=== PATIENT | male | born 1960 | race Caucasian/White ===

== ENCOUNTER 2021-05-25 10:42 | Outpatient (CLI) | payer MEDICAID, SELFPAY ==
[2021-05-25 12:57] LABS: Source Nasal/Nares
[2021-05-25 15:24] LABS: COVID-19 PCR Negative (Negative)
== END 2021-05-25 10:43 | disposition home or self-care (01) ==
PROVIDERS: PCP Family Medicine; Visit Provider Ophthalmology
DX: Z20.822 Contact with and (suspected) exposure to COVID-19 (principal); Z01.818 Encounter for other preprocedural examination
CPT/HCPCS: 87635

== ENCOUNTER 2021-06-14 12:54 | Outpatient (CLI) | payer MEDICAID, SELFPAY ==
--- NOTE | 2021-06-14 12:45 | RT.EKG_ITS ---
APPROVED REPORT Exam: Resting ECG Reason for Exam: CAD Patient Location: O HR:87 bpm ECG Measurements Heart Rate 87 AXIS MT 172 P 64 QRSd 115 QRS 56 QT 350 T 69 QTc 421 Conclusion Sinus rhythm...normal P axis, V-rate 50- 99 Ventricular premature complex...V complex w/ short R-R interval Probable left atrial enlargement...P >50mS, <-0.10mV V1 Incomplete right bundle branch block...QRSd >112, terminal axis(90,270) Anterior myocardial infarction age-indeterminate
== END 2021-06-14 12:55 | disposition home or self-care (01) ==
LOC: DI.CARD 12:54
PROVIDERS: PCP Family Medicine; Visit Provider Internal Medicine Cardiovascular Disease
DX: I25.10 Atherosclerotic heart disease of native coronary artery without angina pectoris (principal)
CPT/HCPCS: 93010

== ENCOUNTER 2021-09-14 04:13 | Outpatient (CLI) | payer MEDICAID, SELFPAY ==
[2021-09-14 12:59] LABS: Source Nasal/Nares
[2021-09-14 17:46] LABS: COVID-19 PCR Negative (Negative)
== END 2021-09-14 04:14 | disposition home or self-care (01) ==
LOC: LBO 04:13
PROVIDERS: PCP Internal Medicine; Visit Provider Ophthalmology
DX: Z20.822 Contact with and (suspected) exposure to COVID-19 (principal)
CPT/HCPCS: 87635

== ENCOUNTER 2021-09-17 07:32 | Day surgery (SDC) | payer MEDICAID, SELFPAY ==
[2021-09-17 07:36] VITALS: BP 145/87; PULSE 81; RESP 22; TEMP 36.5; O2SAT 95
[2021-09-17] MEDS: Tropicam./Phenyleph. (1/2.5%) 5 ML BTL OD ×3 (08:02→08:13)
--- NOTE | 2021-09-17 08:02 | ANES.PREOP_ITS ---
General Info Date of Service Date Performed: 09/17/21 Height: 5 ft 10 in Weight: 80.3 kg Body Mass Index (BMI): 25.4 Surgical Procedure: Operation Date: 09/17/21 09:40 Proposed Procedures Side Surgeon p Cataract Extraction with IOL Implant Right Ruben Benitez MD Meds Allergies and Home Medications Allergies Allergy/AdvReac Type Severity Reaction Status Date / Time No Known Allergies Allergy Verified 09/17/21 07:53 Home Medication Medication Instructions Recorded acetaminophen 650 mg PO Q6H PRN 05/23/21 albuterol sulfate [ProAir HFA] 2 puff INHALATION Q6H PRN 05/23/21 ascorbic acid (vitamin C) 1,000 mg PO DAILY 05/23/21 aspirin 81 mg PO DAILY 05/23/21 atorvastatin 40 mg PO DAILY 05/23/21 calcium carbonate-vitamin D3 2 tab PO DAILY 05/23/21 digoxin 0.25 mcg PO DAILY 05/23/21 ferrous sulfate 650 mg PO DAILY 05/23/21 finasteride 5 mg PO DAILY 05/23/21 furosemide [Lasix] 40 mg PO DAILY 05/23/21 gabapentin 600 mg PO TID 05/23/21 metoprolol succinate 100 mg PO DAILY 05/23/21 multivitamin with folic acid 1 tab PO DAILY 05/23/21 omeprazole 40 mg PO DAILY 05/23/21 rivaroxaban [Xarelto] 20 mg PO DAILY 05/23/21 tamsulosin 0.4 mg PO HS 05/23/21 Current Visit Medications: Current Medications Generic Name Dose Route Start Last Admin Trade Name Freq PRN Reason Stop Dose Admin Acetaminophen 1,000 mg 09/17/21 06:00 Acetaminophen 500 Mg Tab PO Q4H PRN PRN Miscellaneous Medication 0 ml 09/17/21 06:00 Prednisolone 1%, Moxifloxacin 0.5%, Nepafenac 0.1% 5ml Btl OD DIRECTED PENDING SALE TO [facility] Miscellaneous Medication 0 ml 09/17/21 06:00 Tropicam./Phenyleph. (1/2.5%) 5 Ml Btl OD DIRECTED PREETHI Tetracaine HCl 0 ml 09/17/21 06:00 Tetracaine 0.5% 4 Ml Btl OD DIRECTED PENDING SALE TO [facility] PFS Active Problems Active Problems: Problem Status Onset Code HTN (hypertension) I10 Atherosclerosis of coronary artery without angina pectoris I25.10 Critical lower limb ischemia I70.229 Nuclear sclerotic cataract of right eye H25.11 Cortical cataract of right eye H26.9 Posterior subcapsular age-related cataract, right eye H25.041 Medical History Medical History (Updated 09/17/21 @ 07:55 by Maria Isabel Castillo) Abnormal LFTs (liver function tests) Acute systolic CHF (congestive heart failure) Anemia Cardiomyopathy COPD (chronic obstructive pulmonary disease) Hiatal hernia with GERD without esophagitis History of alcoholism History of anemia HLD (hyperlipidemia) Hyperkalemia Hypo-osmolality and hyponatremia Intermittent claudication Lumbosacral radiculopathy NSTEMI (non-ST elevated myocardial infarction) Overweight Pain in right knee Pulmonary hyperinflation Stenosis of artery of left lower extremity Tobacco Smoking/Tobacco Use Status: Current every day Tobacco Type: cigarettes Smoking packs per day: 0.5 Smoking cigarettes per day: 15 Alcohol Alcohol Intake: current Alcohol intake frequency: a few times a month Substance Use Substance use type: does not use Vital Signs and Lab Results Vital Signs Most Recent Vital Signs in EMR: Most Recent Vital Signs Temp Pulse Resp BP Pulse Ox 36.5 C 81 22 145/87 H 95 09/17/21 07:36 09/17/21 07:36 09/17/21 07:36 09/17/21 07:36 09/17/21 07:36 Lab Results Blood Type / Crossmatch: No Data to Display Complete Blood Count: No Data to Display Complete Metabolic Panel: No Data to Display Liver Function Panel: No Data to Display Coagulation Panel: No Data to Display Cardiac Panel: No Data to Display Arterial Blood Gas: No Data to Display Venous Blood Gas: No Data to Display Pancreas Panel: No Data to Display Thyroid Panel: No Data to Display Infectious Disease: Coronavirus (COVID-19)(PCR) Negative (Negative) 09/14/21 08:35 09/14/21 Coronavirus 2019 Source Nasal/Nares 09/14/21 08:35 09/14/21 Blood Cultures: No Data to Display Toxicology Panel: No Data to Display Imaging and Studies Imaging and Studies Study information below may be from another EMR and interpreted by another provider. Please see original notes in EMR for more complete details. EKG Summary: 06/14/21: Conclusion Sinus rhythm...normal P axis, V-rate 50- 99 Ventricular premature complex...V complex w/ short R-R interval Probable left atrial enlargement...P >50mS, <-0.10mV V1 Incomplete right bundle branch block...QRSd >112, terminal axis(90,270) Anterior myocardial infarction age-indeterminate Anesthesia Assessment and Plan Anesthesia History Personal History: No History of Anesthesia Complications Family History: No Family History of Anesthesia Complications Exercise Tolerance Exercise Tolerance: Metabolic Equivalents>4 Cardiac & Pulmonary Exam Cardiac Exam: Normal S1/S2 Heart Sounds Pulmonary Exam: Clear Bilateral Breath Sounds Implantable Cardiac Device Does patient have a Pacemaker or an ICD?: No Airway Exam Known Difficult Airway: No Mallampati Class: 2 Mouth Opening: Normal (> 3cm) Thyromental Distance: Greater than 3 cm Facial Hair: Full Muñoz Neck Range of Motion: Full ROM Neck Circumference: Normal Teeth Condition: Removable Dentures/Plates Upper ASA Classification ASA Score: ASA 3 Emergency Case?: No NPO Status NPO Status: NPO Clears >2 hours, Solids >8 hours Anesthesia Plan Resuscitation Status: Full Code Anesthesia Technique: MAC Anesthesia Airway Planned: Natural Airway Monitors Used: Standard Monitors
[2021-09-17 08:05] VITALS: BMI 25.4
[2021-09-17] MEDS: Tetracaine 0.5% 4 ML BTL OD (09:03)
[2021-09-17] MEDS: Balanced Salt Soln.-PLUS 500 ML BAG (09:04)
[2021-09-17] MEDS: Duovisc Viscoelastic System EACH 1 EACH (09:05)
[2021-09-17] MEDS: Lidocaine 2% Jelly 6 ML SYR (09:07)
[2021-09-17] MEDS: Povidone-Iodine Ophth 30 ML BTL (09:09)
[2021-09-17] MEDS: Trypan Blue 0.06% 0.5 ML SYR (09:10)
[2021-09-17 09:21] VITALS: BP 135/87; PULSE 77; RESP 16; TEMP 36.4; O2SAT 92
--- NOTE | 2021-09-17 09:23 | W.PM.DSUDISC ---
Discharge Plan Disposition Patient Disposition: HOME Condition: Good Discharge Details Attending Provider: Ruben Benitez Primary Care Provider: Reji Andrews Home Meds and New Rx's Prescriptions: No Action furosemide [Lasix] 40 mg Tablet 40 mg PO DAILY RF: 0 atorvastatin 40 mg Tablet 40 mg PO DAILY RF: 0 acetaminophen 325 mg Tablet 650 mg PO Q6H PRNRF: 0 gabapentin 600 mg Tablet 600 mg PO TID RF: 0 metoprolol succinate 50 mg Tablet Extended Release 24 Hr 100 mg PO DAILY RF: 0 digoxin 250 mcg (0.25 mg) Tablet 0.25 mcg PO DAILY RF: 0 omeprazole 40 mg Capsule,Delayed Release(Dr/Ec) 40 mg PO DAILY RF: 0 tamsulosin 0.4 mg Capsule 0.4 mg PO HS RF: 0 ferrous sulfate 325 mg (65 mg iron) Tablet 650 mg PO DAILY RF: 0 aspirin 81 mg Tablet 81 mg PO DAILY RF: 0 albuterol sulfate [ProAir HFA] 90 mcg/actuation Hfa Aerosol Inhaler 2 puff INHALATION Q6H PRNRF: 0 finasteride 5 mg Tablet 5 mg PO DAILY RF: 0 calcium carbonate-vitamin D3 200 mg (500 mg) -400 unit Tablet 2 tab PO DAILY RF: 0 Xarelto 20 mg Tablet 20 mg PO DAILY RF: 0 multivitamin with folic acid 400 mcg Tablet 1 tab PO DAILY RF: 0 ascorbic acid (vitamin C) 500 mg Capsule 1,000 mg PO DAILY RF: 0 Discharge Instructions Stand Alone Forms: Post-op Topical Cataract, Hermelinda England ([facility]) Discharge Orders Discharge Orders: Discharge Order (Routine); Ordered 09/17/21 Ordered By: Ruben Benitez DS: Diagnosis Discharge Diagnosis (1) Nuclear sclerotic cataract of right eye: Status: Resolved (2) Cortical cataract of right eye: Status: Resolved (3) Posterior subcapsular age-related cataract, right eye: Status: Resolved
--- NOTE | 2021-09-17 09:24 | W.PM.OP ---
Date of service: 09/17/21 Time of Service: 09:24 Operative Note Operative Note DATE OF PROCEDURE: 09/17/21 PRE-OP DIAGNOSIS: Nuclear/cortical/posterior subcapsular cataract, right eye Poor red reflex, right eye secondary to dense cataract POST-OP DIAGNOSIS: same PROCEDURE: Cataract extraction using phacoemulsification with intraocular lens implantation, right eye, using capsular staining with Vision Blue SURGEON: Ruben Benitez ANESTHESIA TYPE: Local By Surgeon and MAC Refer to Anesthesia Record PATHOLOGY: none sent COMPLICATIONS: None Patient was transported to: same day Patient's condition: stable Implants: [employer]ie [employer] Howie / [employer] Tecnis [id number] Indications: Progressive visual loss due to cataract, right eye Procedure Description: CATARACT SURGERY OPERATIVE REPORT PREOPERATIVE DIAGNOSIS: 1. Nuclear/cortical/posterior subcapsular cataract, right eye 2. Poor red reflex secondary to #1 POSTOPERATIVE DIAGNOSIS: Same OPERATION: 1. Cataract extraction using phacoemulsification with posterior chamber intraocular lens implant, right eye. 2. Capsular staining with Vision Blue IOL: IOL Hydraulic Miner Blasting/Model: Howie & Howie / EMA Tecnis [id number] IOL Power: + 20.5 diopters IOL Serial Number: [id number] Optic Diameter: 6.0mm Haptic/Overall Diameter: 13.0mm PHACO INFO: Dima Prezmaurion Vision System with OZil and Active Fluidics Cumulative Dispersed Energy (CDE): 4.26 seconds SURGEON: Ruben Benitez MD, MERA ANESTHESIA: Monitored Anesthesia Care (MAC), with local sub-tenon's anesthetic infiltration COMPLICATIONS: None SPECIMENS: None INDICATIONS FOR PROCEDURE: The patient is a 61-year-old male with history of diminished visual acuity in his right eye secondary to the development of significant nuclear/cortical/posterior subcapsular cataract in the right eye. The option of cataract surgery was offered to the patient and he felt he was symptomatic enough that he wished to proceed. PROCEDURE: The correct surgical eye was identified and marked as the right eye and the pupil was dilated in the preoperative area using mydriatics and cycloplegics. The dilated pupil size was 5.5 mm. Oral sedation was administered in the form of an Imprimis MKO Melt (midazolam 3mg/ketamine 25mg/ondansetron 2mg). The patient was brought to the operating room where cardiopulmonary monitoring was instituted and surgical time-out was performed, confirming the correct operative eye and IOL power. Topical anesthesia was administered and ophthalmic povidone-iodine 5% was instilled into the conjunctival fornices. Lidocaine gel was applied to the cornea and the kelin-ocular area was prepped with Betadine 10% solution and draped in the usual sterile fashion for intraocular surgery, including an aperture drape. A Tegaderm transparent film dressing was cut in half and used to cover the lashes and lid margins. Care was taken to sequester the lashes and lid margins under the Tegaderm dressing. A lid speculum was placed between the lids of the operative eye and the Kayla-Yeimy operating microscope was maneuvered into position. Angelito scissors were then used to make a conjunctival buttonhole approximately 6mm posterior to the limbus in the inferonasal quadrant. Blunt dissection was carried out to expose bare sclera, and a blunt-tipped sub-tenon?s anesthesia cannula was introduced and passed posteriorly along the globe where non-preserved plain lidocaine was injected into posterior sub-Tenon?s space. A sideport knife was used to make a paracentesis port inferotemporally. Intraocular phenylephrine/lidocaine was injected into the anterior chamber. Air was injected into the anterior chamber, followed by Vision Blue, which was painted over the anterior capsule and then irrigated out with BSS. The anterior chamber was filled with viscoelastic. A 2.4mm keratome knife was used to create a half-thickness groove at the limbus and then to construct a three-plane near-clear corneal tunnel extending 2.0mm into clear cornea superiortemporally. A flap was raised on the anterior capsule and capsulorhexis forceps were used to complete a continuous curvilinear capsulorhexis of 5.0 mm. Balanced salt solution was then used to perform cortical cleaving hydrodissection and nuclear hydrodelineation until the lens could be freely rotated within the capsular bag. The lens nucleus was then disassembled and removed within the capsular bag and iris plane using phacoemulsification. Residual cortical material was removed using the I/A handpiece. The posterior capsule was carefully polished to remove as much residual lens epithelial cells as safely possible. The capsular bag was then inflated and the anterior chamber deepened with viscoelastic. The lens implant described above was inserted into the capsular bag using the EMA [place] Injector. A Kuglen hook was used to dial the IOL into position. Residual viscoelastic was then removed first from posterior to the IOL, then from the anterior chamber using the I/A handpiece. The lens implant was noted to center nicely within the capsular bag. The incisions were stromally hydrated, and the anterior chamber was reformed using BSS. Then 0.5cc of moxifloxacin 1.0mg/ml were injected into the capsular bag and anterior chamber. The incisions were checked with a Weck spear and found to be secure. Several drops of ophthalmic povidone-iodine 5% were then applied to the eye followed by two drops of Imprimis combination prednisolone/moxifloxacin/nepafenac solution. The drapes were removed and a clear plastic protective eye shield was placed over the eye. The patient was then returned to [facility] Day Surgery in stable condition.
--- NOTE | 2021-09-17 09:35 | W.ANESPOSTOP ---
Postoperative Evaluation Date, Time and Location Date Performed: 09/17/21 Time Performed: 09:25 Patient Location: Day Surgery Unit Vital Signs Most Recent Imported Vital Signs: Most Recent Vital Signs Temp Pulse Resp BP Pulse Ox 36.4 C L 77 16 135/87 92 09/17/21 09:21 09/17/21 09:21 09/17/21 09:21 09/17/21 09:21 09/17/21 09:21 Pain Score Most Recent Pain Score: Most Recent Pain Score Pain Level 0 09/17/21 09:21 Assessment Mental Status: Awake (Alert & Oriented to Patient Baseline) Airway and Respiratory Function: Patent airway with normal (patient baseline) respiratory exam Cardiovascular Function: Hemodynamically Stable Hydration Status: Adequately Hydrated Nausea & Vomiting: No Nausea or Vomiting Pain: Pt. Denies Any Pain Peripheral Nerve Block: Patient did not receive a nerve block
[2021-09-17 09:50] VITALS: BP 117/80; PULSE 77; RESP 20; TEMP 36.5; O2SAT 91
== END 2021-09-17 10:10 | disposition home or self-care (01) ==
PROVIDERS: PCP Internal Medicine; Visit Provider Ophthalmology
PROC: (CPT 66984; principal; 2021-09-17 09:30)
DX: H25.041 Posterior subcapsular polar age-related cataract, right eye (principal); J44.9 Chronic obstructive pulmonary disease, unspecified; E78.5 Hyperlipidemia, unspecified; D64.9 Anemia, unspecified; F17.210 Nicotine dependence, cigarettes, uncomplicated; H57.09 Other anomalies of pupillary function
CPT/HCPCS: 66984; V2632

== ENCOUNTER 2021-09-28 02:00 | Outpatient (CLI) | payer MEDICAID, SELFPAY ==
[2021-09-28 10:38] LABS: Source Nasal/Nares
[2021-09-28 13:45] LABS: COVID-19 PCR Negative (Negative)
== END 2021-09-28 02:01 | disposition home or self-care (01) ==
LOC: LBO 02:00
PROVIDERS: PCP Internal Medicine; Visit Provider Ophthalmology
DX: Z20.822 Contact with and (suspected) exposure to COVID-19 (principal); Z01.818 Encounter for other preprocedural examination
CPT/HCPCS: 87635

== ENCOUNTER 2021-10-01 08:55 | Day surgery (SDC) | payer MEDICAID, SELFPAY ==
[2021-10-01 09:19] VITALS: BP 152/87; PULSE 86; RESP 16; TEMP 36.5; O2SAT 90
--- NOTE | 2021-10-01 09:46 | NUR.NOTE ---
MCKNIGHT. Arrived in wheel chair. O2 sats 86% on room air. Occasional congested cough. Flakita diminished lung sounds. States he took his albuterol MDI at 0600 this AM. Denies having spacer. Spacer obtained and utelized with instructions for 2 puffs MDI from home. Criselda from anesthesia made aware and in to see patient. Nursing Note:
--- NOTE | 2021-10-01 09:57 | NUR.NOTE ---
Nebulizer given. LS remain extremely diminished with new faint expiratory wheezin left lung. O2 sats 90% on room air. Nursing Note:
--- NOTE | 2021-10-01 10:42 | ANES_ITS ---
Date of service: 10/01/21 Time of Service: 10:43 Anesthesia Note Report Anesthesia Note: [facility] nursing staff alerted anesthesia that patient presented today for second cataract and was reporting productive cough over the last week. Patient with a history of COPD, yet significantly decreased O2 saturation from his previous visit. Duoneb was ordered and administered. No improvement in symptoms--tripoding in chair, with O2 sat on room air 84%. Plan to postpone pa tient today and will need to be evaluated in ER or have plan in place to be seen by his PCP today prior to discharge. Patient appropriately disappointed and verbalizes understanding for postponement.
--- NOTE | 2021-10-01 11:01 | NUR.NOTE ---
O2 sats trended back to 84-86% on room air. Assuming tripod positioning. Remains alert and oriented. Congested cough productive for thick yellow phlegm. Sister notified. Transferred to emergency department. Report given to Rafy Lima RN. Nursing Note:
--- NOTE | 2021-10-01 11:02 | NUR.NOTE ---
1050: Spoke with pt's primary care office ([facility]), as well as pt's two sisters (as requested by pt) Emy Christina and Portia Darrius to let them know pt's status; they were all onboard with plan to send pt to ED r/t pt's inability to maintain O2 sats despite intervention by Carli Webster CRNA and poor O2 exchange, per TOOL CRIB CLERK. When appropriate, pt transported to ED via wheelchair with [facility] staff.
== END 2021-10-01 08:56 | disposition home or self-care (01) ==
LOC: SUR 08:55
PROVIDERS: PCP Internal Medicine; Visit Provider Ophthalmology
DX: H26.8 Other specified cataract (principal); Z53.09 Procedure and treatment not carried out because of other contraindication; R05.1 Acute cough; J44.9 Chronic obstructive pulmonary disease, unspecified

== ENCOUNTER 2021-10-01 10:51 | Observation (INO) | payer MEDICAID, SELFPAY ==
[2021-10-01] VITALS (34 sets, daily range): BP systolic 99–154; BP diastolic 62–116; PULSE 51–139; RESP 4–25; TEMP 36.4–36.8; O2SAT 87–98
--- NOTE | 2021-10-01 11:00 | RT.EKG_ITS ---
APPROVED REPORT Exam: Resting ECG Reason for Exam: sob Patient Location: E HR:77 bpm ECG Measurements Heart Rate 77 AXIS NC 174 P 58 QRSd 111 QRS 78 QT 399 T 61 QTc 449 Conclusion Sinus rhythm...normal P axis, V-rate 60- 99 Multiform ventricular premature complexes...short R-R, variable morphology Anterolateral infarct, old...Q>40mS, abnrm ST-T, V3-V6,I,aVL no STEMI, non-diagnostic EKG I have reviewed and interpreted ECG and agree with software generated interpretation.
--- NOTE | 2021-10-01 11:00 | DI.RAD_ITS ---
Exam(s) XR PORTABLE CHEST AP EXAM: XR PORTABLE CHEST AP CLINICAL HISTORY: Shortness of breath. TECHNIQUE: 2D digital imaging was performed. COMPARISON: No exams were available for comparison FINDINGS: Heart size is upper normal. The mediastinum is not widened. There are mild increased interstitial markings in the lung steiner including a few subtle Jg B freedom es in the lateral right lung base. There are no pleural effusions. No pneumothorax. IMPRESSION: Subtle increased bilateral markings. No pleural effusions DATA REPOSITORY: RADIATION DOSE DELIVERED: All CT scans at this facility use at least one of these dose optimization techniques: automated exposure control; mA and/or kV adjustment per patient size (includes targeted e xams where dose is matched to clinical indication); or iterative reconstruction.
[2021-10-01 11:32] LABS: Abs Immature Grans 0.04 10^3/uL (0.0-0.06); Absolute Basophil Count 0.03 10^3/uL (0.0-0.2); Absolute Eosinophil Count 0.12 10^3/uL (0.0-0.7); Absolute Lymphocyte Count 1.48 10^3/uL (1.2-3.4); Absolute Monocyte Count 1.09 10^3/uL (0.1-0.8); Absolute Neutrophil Count 7.44 10^3/uL (1.2-6.7); Basophils % 0.3; Eosinophils % 1.2; HCT 42.5 % (40.0-50.0); HGB 14.3 g/dL (13.5-17.5); Immature Grans % 0.4; Lymphocytes % 14.5; MCHC 33.6 % (32.0-36.0); MCV 92.2 fL (80-95); MPV 9.1 fL (8.0-11.0); Monocytes % 10.7; Neutrophils % 72.9; Nucleated RBC 0 %; Platelet Count 301 10^3/uL (130-400); RBC 4.61 10^6/uL (4.36-5.78); RDW 13.1 % (11.8-14.1); RDW-SD 44.5 fL
[2021-10-01 11:37] LABS: HCO3 (Venous) 44 mmol/L (23-28); O2 Sat (Venous) 38 %; TCO2 (Venous) 40 mmol/L (24-29); pH (Venous) 7.45 (7.31-7.41); pO2 (Venous) 20 mmHg
[2021-10-01] MEDS: methylPREDNISolone SUCC 125 MG VIAL IVP (11:38)
[2021-10-01] MEDS: Albuterol/Ipratropium 3 ML UPD VIAL UPD ×2 (11:38→18:04)
[2021-10-01 11:40] LABS: BE (Venous) > 15 mmol/L (-2-3); pCO2 (Venous) 64 mmHg (41-51)
[2021-10-01 11:55] LABS: ALT 20 U/L (16-63); AST 15 U/L (15-37); Albumin 3.6 g/dL (3.4-5.0); Alkaline Phosphatase 105 U/L (46-116); Anion Gap 0.9 mmol/L (3-11); BUN 7 mg/dL (7-18); Bilirubin, Total 0.5 mg/dL (0.2-1.0); CO2 39.1 mmol/L (21.0-32.0); CREATININE 0.7 mg/dL (0.70-1.30); Calcium 9.1 mg/dL (8.5-10.1); Chloride 84 mmol/L (98-107); Glucose 118 mg/dL (74-106); Magnesium 1.7 mg/dL (1.8-2.4); NT-proBNP 875 pg/mL (<300); Potassium 3.3 mmol/L (3.5-5.1); Total Protein 7.7 g/dL (6.4-8.2); Troponin I < 50 ng/L (<or=60)
[2021-10-01 11:59] LABS: Sodium 124 mmol/L (136-145)
--- NOTE | 2021-10-01 12:10 | ED.GENADUL_ITS ---
Discharge Plan Disposition Patient Disposition: [facility] INPATIENT Condition: Stable Discharge Details Clinical Impression: Hypoxia, COPD exacerbation Admit Date/Time: 10/01/21 15:10 Admit Provider: Laura Frost Attending Provider: Laura Frost Primary Care Provider: Reji Andrews ED Provider: Mendez Manuel Discharge Data Discharge Date/Time-TO BE ENTERED AT DEPARTURE: 10/01/21 16:28 Medical Decision Making Patient presenting to the emergency department for chief complaint of shortness of breath. Patient reports that this is been worsening over the past 2 weeks. Patient denies any associated chest pain abdominal pain or other symptoms. He does report that this since April he has had a chronic productive cough. Patient recently had cataract procedure. Physical exam shows mild to moderate work of breathing with slightly barrel chest. Very diminished lung sounds in the bases with mild wheezing heard upper lobes with still small amount of air movement. Normal cardiac exam, patient is alert and awake and oriented and able speak in full sentences. Plan to check labs including troponin, BNP, and VBG. Will give DuoNeb and Solu-Medrol pending results. Patient also kept on 2 L nasal cannula of O2 given desaturation on room air even at rest going down to 85 while sitting on bed. EKG shows PVCs without significant ST change. Please see attending physician interpretation for full EKG review. Initial troponin is negative, BNP slightly elevated at 875, patient does have hyponatremia, hypokalemia, low chloride and low anion gap. Magnesium is also 1.7. Given electrolyte abnormalities and PVCs plan to check digoxin level. CBC shows no leukocytosis and no anemia. VBG shows slight alkalosis with elevated bicarb along with elevated CO2. Will consider placing patient on BiPAP but after discussion of patient's condition with respiratory therapist requesting ABG prior to starting BiPAP. I feel this is a reasonable request. Patient still pending D-dimer at this time. Reviewed D-dimer which is slightly elevated at 508. With age-adjusted adjusted level patient would not meet criteria for CTA but nurse did report that patient did significantly desat just simply standing up from the bed while on 2 L of oxygen. Given this and no obvious cause of patient hypoxia beyond his COPD which at baseline is only treated with a as needed inhaler I do feel that further advanced imaging would be beneficial. Chest x-ray was reviewed prior to CTA and showed no pleural effusion and subtle increase of bilateral markings without consolidation or infiltrate noted. Pending CTA patient did need an increase of nasal cannula to 4L due to having some desaturation while resting. Radiologist CT results were obtained and did show a slight subpleural infiltrate without pleural effusion. Otherwise no evidence of PE, infarction, or effusion. Given that patient is hypoxic and continues to need nasal cannula I do feel that patient needs admission with fashion of COPD exacerbation being primary cause but honestly difficult to ascertain given otherwise benign work-up. Spoke with Dr. Frost who agreed to admit patient and complete evaluation for hypoxia. HPI General Mode of arrival: ambulatory . Date/Time Provider Initiated Documentation: 10/01/21 10:52 . Limitations to Documentation: no limitations . Information obtained by: patient and RN/MD . History of Present Illness 61 year old M presents to the emergency department with the chief complaint of Shortness of breath, described as moderate, Quality is described as other (denies pain or discomfort), Patient started experiencing this month(s) and it has been constant. improves with No relieving factors improve symptom(s), Other factors that worsen symptoms (change in weather) . Patient notes denies chest pain, fever/chills and headaches. Patient did receive the following treatments prior to arrival, other (albuterol) Related Data Home Medications Medication Instructions Recorded Confirmed acetaminophen 325 mg tablet 650 mg PO Q6H PRN 05/23/21 10/01/21 albuterol sulfate 90 mcg/actuation 2 puff INHALATION Q6H PRN 05/23/21 10/01/21 aerosol inhaler (ProAir HFA) ascorbic acid (vitamin C) 500 mg 1,000 mg PO DAILY 05/23/21 10/01/21 capsule aspirin 81 mg tablet 81 mg PO DAILY 05/23/21 10/01/21 atorvastatin 40 mg tablet 40 mg PO DAILY 05/23/21 10/01/21 calcium carbonate 200 mg calcium 2 tab PO DAILY 05/23/21 10/01/21 (500 mg)-vitamin D3 400 unit tablet digoxin 250 mcg (0.25 mg) tablet 250 mcg PO DAILY 05/23/21 10/01/21 ferrous sulfate 325 mg (65 mg 650 mg PO DAILY 05/23/21 10/01/21 iron) tablet finasteride 5 mg tablet 5 mg PO DAILY 05/23/21 10/01/21 furosemide 40 mg tablet (Lasix) 40 mg PO DAILY 05/23/21 10/01/21 metoprolol succinate 50 mg 100 mg PO DAILY 05/23/21 10/01/21 tablet,extended release 24 hr multivitamin with folic acid 400 1 tab PO DAILY 05/23/21 10/01/21 mcg tablet omeprazole 40 mg capsule,delayed 40 mg PO DAILY 05/23/21 10/01/21 release rivaroxaban 20 mg tablet (Xarelto) 20 mg PO DAILY 05/23/21 10/01/21 tamsulosin 0.4 mg capsule 0.4 mg PO HS 05/23/21 10/01/21 gabapentin 600 mg tablet 600 mg PO DAILY 10/01/21 10/01/21 omega-3 fatty acids 1 cap PO BID 10/01/21 10/01/21 budesonide-formoterol HFA 80 2 puff INHALATION BID #1 g 10/03/21 mcg-4.5 mcg/actuation aerosol inhaler (Symbicort) cefpodoxime 200 mg tablet 400 mg PO Q12H #10 tab 10/03/21 doxycycline hyclate 100 mg tablet 100 mg PO BID #5 tab 10/03/21 prednisone 20 mg tablet 40 mg PO DAILY #6 tab 10/03/21 Previous Rx's Medication Instructions Recorded budesonide-formoterol HFA 80 2 puff INHALATION BID #1 g 10/03/21 mcg-4.5 mcg/actuation aerosol inhaler (Symbicort) cefpodoxime 200 mg tablet 400 mg PO Q12H #10 tab 10/03/21 doxycycline hyclate 100 mg tablet 100 mg PO BID #5 tab 10/03/21 prednisone 20 mg tablet 40 mg PO DAILY #6 tab 10/03/21 Allergies Allergy/AdvReac Type Severity Reaction Status Date / Time No Known Allergies Allergy Verified 10/01/21 13:02 General Stated Complaint: SOB SINDY: 2 Review of Systems Constitutional Constitutional: Denies chills and Denies fever(s) Cardiovascular Cardiovascular: Denies chest pain, Denies chest pain with activity, Denies syncope, Denies irregular heart rhythm, Denies leg edema, Denies palpitations, Reports dyspnea and Reports dyspnea on exertion Respiratory Respiratory: Reports as per HPI, Reports cough, Denies hemoptysis, Reports excessive phlegm production, Denies pain with cough, Reports dyspnea and Reports dyspnea on exertion Gastrointestinal Gastrointestinal: Denies abdominal pain, Denies heartburn, Denies diarrhea, Denies nausea and Denies vomiting Integumentary/Breasts Skin/Breast: Denies rash Neurologic Neurologic: Denies syncope Psychiatric Psychiatric: Denies anxiety Endocrine Endocrine: Denies cold intolerance, Denies heat intolerance and Denies palpitations PFSH All Active Problems (Updated 10/04/21 @ 00:04 by [employer]) Hypoxia (Acute) COPD exacerbation (Acute) HTN (hypertension) (Chronic) Atherosclerosis of coronary artery without angina pectoris (Acute) Critical lower limb ischemia (Acute) Medical History (Updated 10/04/21 @ 00:04 by [employer]) Abnormal LFTs (liver function tests) Acute respiratory failure with hypoxia and hypercapnia Acute systolic CHF (congestive heart failure) Anemia CAD (coronary artery disease) Cardiomyopathy COPD (chronic obstructive pulmonary disease) Hiatal hernia with GERD without esophagitis History of alcoholism History of anemia HLD (hyperlipidemia) Hyperkalemia Hypo-osmolality and hyponatremia Intermittent claudication Lumbosacral radiculopathy NSTEMI (non-ST elevated myocardial infarction) Overweight PAD (peripheral artery disease) Pain in right knee Pulmonary hyperinflation Stenosis of artery of left lower extremity Surgical History Hx of vascular surgery LLE. Family History (Updated 10/01/21 @ 18:03 by Laura Frost MD) Father Hypertension Mother Cancer ovarian cancer Social History (Updated 10/01/21 @ 18:04 by Laura Frost MD) Smoking/Tobacco Use Status: Current every day Tobacco Type: cigarettes Smoking packs per day: 0.75 Smoking cigarettes per day: 15.0 Years smoked: 45 Smoking pack-years: 33.75 Quit status: considering quitting Counseling given: provider counseling and support medications Smoking risk assessment performed?: Yes Alcohol Intake: current Alcohol Intake frequency: a few times a month Substance use type: does not use Do you feel safe at home: Yes Do you feel safe in your relationship?: Yes Exam Const General: cooperative, acute distress mild, moderate and respiratory and not diaphoretic Nutritional Appearance: average body habitus Orientation: alert, awake and oriented x3 Limitations: mental status not altered Neck Neck: normal visual inspection, full ROM, trachea midline, supple and no anterior neck swelling Thyroid: thyroid normal Carotids: normal carotid upstroke and no bruits Chest Chest: abnormal inspection of the chest barrel chest Resp Effort & Inspection: able to speak in complete sentences, labored and tachypneic Auscultation: diminished lung sounds bilaterally in the lower lung steiner and wheezes expiratory wheezes and left upper Cardio Jugular venous pressure: no JVD Palpation: normal PMI Rate: regular rate Rhythm: regular rhythm Heart Sounds: S1 normal, S2 normal, no click, no gallops, no murmurs and no rubs Bruits: no abdominal aortic bruits and no carotid bruits Pulses: radial pulses present bilaterally 2+ GI Inspection: normal to inspection Palpation: soft, no aortic enlargement, no pulsatile masses and nontender Auscultation: normal bowel sounds Skin General skin exam: no rashes or lesions noted Neuro General: patient alert, patient awake, patient oriented x3, tone normal and moves all extremities Course Vital Signs Vital signs: Vital Signs Temperature 36.4 C L 10/01/21 11:02 Pulse 79 10/01/21 11:02 Respiratory Rate 16 10/01/21 11:02 Blood Pressure 134/64 10/01/21 11:02 Pulse Oximetry 87 L 10/01/21 11:02 Temperature 36.4 C L 10/01/21 11:02 Pulse 80 10/01/21 11:38 Pulse 82 10/01/21 11:30 Respiratory Rate 17 10/01/21 11:42 Respiratory Effort 10/01/21 11:42 Respiratory Depth Normal 10/01/21 11:42 Respiratory Pattern Tachypnea 10/01/21 11:42 Blood Pressure 140/86 10/01/21 11:30 Blood Pressure Mean 99 10/01/21 11:30 Blood Pressure Position Supine 10/01/21 11:02 Pulse Oximetry 98 10/01/21 11:38 Oxygen Delivery Method Aerosol Mask 10/01/21 11:38 Oxygen Flow Rate 7 10/01/21 11:38 Lab/Test Results Lab/Test Results: Laboratory Tests Range/Units 10/01/21 10/01/21 10/01/21 11:15 11:15 11:35 WBC (4.4-10.8) 10^3/uL 10.20 RBC (4.36-5.78) 10^6/uL 4.61 Hgb (13.5-17.5) g/dL 14.3 Hct (40.0-50.0) % 42.5 MCV (80-95) fL 92.2 MCH (27.0-33.0) pg 31.0 MCHC (32.0-36.0) % 33.6 RDW (11.8-14.1) % 13.1 Plt Count (130-400) 10^3/uL 301 MPV (8.0-11.0) fL 9.1 Immature Gran % 0.4 Neutrophils % 72.9 Lymphocytes % 14.5 Monocytes % 10.7 Eosinophils % 1.2 Basophils % 0.3 Nucleated RBC % % 0 Absolute Neutrophils (1.2-6.7) 10^3/uL 7.44 H Absolute Lymphocytes (1.2-3.4) 10^3/uL 1.48 Absolute Monocytes (0.1-0.8) 10^3/uL 1.09 H Absolute Eosinophils (0.0-0.7) 10^3/uL 0.12 Absolute Basophils (0.0-0.2) 10^3/uL 0.03 VBG pH (7.31-7.41) 7.45 H VBG pCO2 (41-51) mmHg 64 H* VBG pO2 mmHg 20 VBG HCO3 (23-28) mmol/L 44 H VBG Total CO2 (24-29) mmol/L 40 H VBG O2 Saturation % 38 VBG Base Excess (-2-3) mmol/L > 15 H Sodium (136-145) mmol/L 124 L Potassium (3.5-5.1) mmol/L 3.3 L Chloride (98-107) mmol/L 84 L Carbon Dioxide (21.0-32.0) mmol/L 39.1 H Anion Gap (3-11) mmol/L 0.9 L BUN (7-18) mg/dL 7 Creatinine (0.70-1.30) mg/dL 0.7 Estimated GFR/1.73 m2 (mL/min/1.73m2) >= 60.00 Glucose (74-106) mg/dL 118 H Calcium (8.5-10.1) mg/dL 9.1 Magnesium (1.8-2.4) mg/dL 1.7 L Total Bilirubin (0.2-1.0) mg/dL 0.5 AST (15-37) U/L 15 ALT (16-63) U/L 20 Alkaline Phosphatase (46-116) U/L 105 Troponin I (<or=60) ng/L < 50 NT-Pro-B Natriuret Pep (<300) pg/mL 875 H Total Protein (6.4-8.2) g/dL 7.7 Albumin (3.4-5.0) g/dL 3.6 PAWSS Have you Been Recently Intoxicated or Drunk Within the Last 30 days?: No Result: 0
[2021-10-01 12:13] LABS: COVID-19 PCR Negative (Negative)
[2021-10-01 12:14] LABS: Source Nasal/Nares
[2021-10-01 12:24] LABS: D-Dimer 508 ng/mlFEU (<500)
[2021-10-01] MEDS: Albuterol/Ipratropium 3 ML UPD VIAL 6 ML UPD (12:27)
[2021-10-01 12:37] LABS: HCO3 42 mmol/L (22-26); pH 7.44 (7.35-7.45); pO2 77 mmHg (80-105); sO2 96 % (95-98); tCO2 38 mmol/L (23-27)
[2021-10-01 12:40] LABS: BE > 15 mmol/L (-2-3); FIO2L 2 L; Site Left Radial; pCO2 62 mmHg (35-45)
--- NOTE | 2021-10-01 13:30 | DI.CT_ITS ---
Exam(s) CT CHEST PE CTA EXAM: CT CHEST PE CTA CLINICAL HISTORY: SOB. TECHNIQUE: Imaging Protocol: CT angiography of the chest was performed using pulmonary embolus mickey col. Multi planar reconstructions were performed. CONTRAST MATERIAL: Intravenous: Omnipaque 350 Contrast volume: 100 cc COMPARISON: CR XR PORTABLE CHEST AP from 10/01/2021 FINDINGS: CHEST: PULMONARY ARTERIES: There are no intraluminal filling defects to suggest acute pulmonary emboli. LUNGS: There is an area of subpleural infiltrate in the left lower lobe (series 4/image 35), this silas suring 1.5 x 1.7 cm.. There are no pleural effusions. MEDIASTINUM: There are enlarged lymph nodes in the right hilum. No enlarged lymph nodes in left hilu m. No enlarged lymph nodes in the anterior mediastinal fat. Visualized thyroid unremarkable. CARDIAC: Heart size is upper normal. There is no pericardial effusion.Caliber of the thoracic aorta is within normal limits. There is no significant shift of the interventricular septum. PARTIALLY VISUALIZED UPPERMOST ABDOMEN: No obvious findings OSSEOUS: No significant osseous lesions.. IMPRESSION: 1. No evidence of acute pulmonary emboli. No evidence of pulmonary infarction.No pleural effusions. 2. However, there is a small area of subpleural infiltrate in the left lower, as described above. No associated pleural effusion 3. There are enlarged lymph nodes in the opposite-right hilum. RADIATION DOSE DELIVERED: 274.06mGy.cm Total DLP DATA REPOSITORY: All CT scans at this facility are submitted to the National Radiology Data Registry (NRDR) Dose Index Registry (DIR) with the [employer] ([employer]). RADIATION OPTIMIZATION: All CT scans at this facility use at least one of these dose optimization te chniques: automated exposure control; mA and/or kV adjustment per patient size (includes targeted exa ms where dose is matched to clinical indication); or iterative reconstruction.
[2021-10-01 14:36] LABS: Digoxin 1.15 ng/mL (0.90-2.00)
--- NOTE | 2021-10-01 15:13 | W.PM.HP.N ---
Date of service: 10/01/21 Time of Service: 15:13 Assessment and Plan Assessment and plan (1) Acute respiratory failure with hypoxia and hypercapnia: Status: Acute Assessment and plan: Already improving. Multifactorial. Due to acute exacerbation of COPD/acute bronchitis as well as mild exacerbation of CHF. Continue steroids; add antibiotics, continue scheduled and prn nebs. Wean O2 as tolerated. Diurese. (2) COPD (chronic obstructive pulmonary disease): Assessment and plan: As above. Add doxycycline/cefpodoxime as the patient describes sputum color change and there is evidence of an subpleural infiltrate on CT. Negative procalcitonin is encouraging, but there was a sputum color change reported. Continue scheduled and prn nebs. Consider addition of symbicort. (3) Cardiomyopathy: Assessment and plan: causing chronic systolic CHF, presumably ischemic in nature. Obtain PCP records. Obtain echo. Diurese. Monitor I/O's and daily weights. Qualifiers: Cardiomyopathy type: ischemic Qualified Code(s): I25.5 - Ischemic cardiomyopathy (4) Hypokalemia: Status: Acute Assessment and plan: Replete; replete; recheck in am (5) Hypomagnesemia: Status: Acute Assessment and plan: Replete; recheck in am (6) DVT prophylaxis: Status: Acute Assessment and plan: On therapeutic xarelto (7) Discharge planning issues: Status: Acute Assessment and plan: Full code History of Present Illness History of Present Illness Chief Complaint: shortness of breath, cough; sent to ER by anesthesia Narrative: Mr Dunaway is a 61 year old male with PMHx of CAD, ICMO/CHFrEF (systolic, last EF unknown), PAD on xarelto, HTN, hyperlipidemia, tobacco abuse who was sent to [facility] ED today by anesthesia, having presented for L cataract surgery scheduled for today due to low O2 sats (80s on RA). He c/o chronic cough since April, which became productive of yellow sputum and was accompanied by worsening shortness of breath x 2 weeks, since his R cataract surgery. He also noted nasal congestion since then. Denies fever, sore throat, chest pain, GI sx, exposure to COVID-19. He is fully vaccinated and boosted against Covid-19. He was found to be hypoxic in the ED with O2 sats of 87% on RA. Due to his WOB, he was considered for BiPAP therapy, but because his ABG revealed respiratory alkalosis, this was deferred. Workup in the ED involved a negative COVID-19 PCR (also had a negative test 3 days ago), a negative CXR, a subpleural infiltrate in LLL and no PE on CTA. He is requiring 2L of O2 at rest but is still desaturating to mid-80s on ambulation on 2L. Hospitalist admission was requested for a presumed COPD exacerbation. The patient states that he watches his salt intake, denies edema, orthopnea/PND. He states that he did not come to the hospital for shortness of breath today; his low O2 sats were found incidentally. Review of Systems All systems reviewed & are unremarkable except as noted in HPI and below PFSH All Active Problems (Updated 10/01/21 @ 18:09 by Laura Frost MD) Hypoxia (Acute) COPD exacerbation (Acute) Discharge planning issues (Acute) DVT prophylaxis (Acute) Hypomagnesemia (Acute) Hypokalemia (Acute) Acute respiratory failure with hypoxia and hypercapnia (Acute) HTN (hypertension) (Chronic) Atherosclerosis of coronary artery without angina pectoris (Acute) Critical lower limb ischemia (Acute) Medical History (Updated 10/01/21 @ 18:09 by Laura Frost MD) Abnormal LFTs (liver function tests) Acute systolic CHF (congestive heart failure) Anemia CAD (coronary artery disease) Cardiomyopathy COPD (chronic obstructive pulmonary disease) Hiatal hernia with GERD without esophagitis History of alcoholism History of anemia HLD (hyperlipidemia) Hyperkalemia Hypo-osmolality and hyponatremia Intermittent claudication Lumbosacral radiculopathy NSTEMI (non-ST elevated myocardial infarction) Overweight PAD (peripheral artery disease) Pain in right knee Pulmonary hyperinflation Stenosis of artery of left lower extremity Surgical History Hx of vascular surgery LLE. Family History (Updated 10/01/21 @ 18:03 by Laura Frost MD) Father Hypertension Mother Cancer ovarian cancer Social History (Updated 10/01/21 @ 18:04 by Laura Frost MD) Smoking/Tobacco Use Status: Current every day Tobacco Type: cigarettes Smoking packs per day: 0.75 Smoking cigarettes per day: 15.0 Years smoked: 45 Smoking pack-years: 33.75 Quit status: considering quitting Counseling given: provider counseling and support medications Smoking risk assessment performed?: Yes Alcohol Intake: current Alcohol Intake frequency: a few times a month Substance use type: does not use Do you feel safe at home: Yes Do you feel safe in your relationship?: Yes Meds Allergies and Home Medications Allergies Allergy/AdvReac Type Severity Reaction Status Date / Time No Known Allergies Allergy Verified 10/01/21 13:02 Home Medications Medication Instructions Recorded Confirmed Type acetaminophen 325 mg tablet 650 mg PO Q6H PRN 05/23/21 10/01/21 History albuterol sulfate 90 mcg/actuation 2 puff INHALATION Q6H PRN 05/23/21 10/01/21 History aerosol inhaler (ProAir HFA) ascorbic acid (vitamin C) 500 mg 1,000 mg PO DAILY 05/23/21 10/01/21 History capsule aspirin 81 mg tablet 81 mg PO DAILY 05/23/21 10/01/21 History atorvastatin 40 mg tablet 40 mg PO DAILY 05/23/21 10/01/21 History calcium carbonate 200 mg calcium 2 tab PO DAILY 05/23/21 10/01/21 History (500 mg)-vitamin D3 400 unit tablet digoxin 250 mcg (0.25 mg) tablet 250 mcg PO DAILY 05/23/21 10/01/21 History ferrous sulfate 325 mg (65 mg 650 mg PO DAILY 05/23/21 10/01/21 History iron) tablet finasteride 5 mg tablet 5 mg PO DAILY 05/23/21 10/01/21 History furosemide 40 mg tablet (Lasix) 40 mg PO DAILY 05/23/21 10/01/21 History metoprolol succinate 50 mg 100 mg PO DAILY 05/23/21 10/01/21 History tablet,extended release 24 hr multivitamin with folic acid 400 1 tab PO DAILY 05/23/21 10/01/21 History mcg tablet omeprazole 40 mg capsule,delayed 40 mg PO DAILY 05/23/21 10/01/21 History release rivaroxaban 20 mg tablet (Xarelto) 20 mg PO DAILY 05/23/21 10/01/21 History tamsulosin 0.4 mg capsule 0.4 mg PO HS 05/23/21 10/01/21 History gabapentin 600 mg tablet 600 mg PO DAILY 10/01/21 10/01/21 History omega-3 fatty acids 1 cap PO BID 10/01/21 10/01/21 History Exam Narrative Exam Narrative: General: Pleasant middle-aged male who does not appear to be in acute distress, no dyspnea/tachypnea while providing hx, completing full sentences, A&Ox3 on 2L of O2 by NC Neurological: A&Ox3, no focal deficits Psychiatric: Appropriate speech pattern/content Skin: Chronic venous stasis dermatitis changes B; no rashes/bruises HEENT: Atraumatic, normocephalic, EOMI, dry MM, clear oropharynx, no submandibular or cervical lymphadenopathy, no goiter or JVD Cardiovascular: RRR, no m/r/g Lungs: Expiratory wheezing and rales B Gastrointestinal: soft, nontender, nondistended Genitourinary: deferred Extremities: +1 edema BLE's, I was unable to palpate pedal pulses; BLE cool; no clubbing/cyanosis. Chronic venous stasis dermatitis. Results Imaging Imaging Studies: CXR: Subtle increased bilateral markings.? No pleural effusions CTA chest ; 1. No evidence of acute pulmonary emboli.? No evidence of pulmonary infarction.No pleural effusions. 2. However, there is a small area of subpleural infiltrate in the left lower, as described above.? No associated pleural effusion 3. There are enlarged lymph nodes in the opposite-right hilum. EKG: HR 78, NSR, RBBB (old) Labs Result diagrams: 10/01/21 11:15 10/01/21 11:15 Labs: Laboratory Results - last 24 hr 10/01/21 10/01/21 10/01/21 11:15 11:15 11:15 WBC 10.20 RBC 4.61 Hgb 14.3 Hct 42.5 MCV 92.2 MCH 31.0 MCHC 33.6 RDW 13.1 Plt Count 301 MPV 9.1 Immature Gran % 0.4 Neutrophils % 72.9 Lymphocytes % 14.5 Monocytes % 10.7 Eosinophils % 1.2 Basophils % 0.3 Nucleated RBC % 0 Absolute Neutrophils 7.44 H Absolute Lymphocytes 1.48 Absolute Monocytes 1.09 H Absolute Eosinophils 0.12 Absolute Basophils 0.03 D-Dimer 508 H ABG Sample Site ABG pH ABG pCO2 ABG pO2 ABG HCO3 ABG Total CO2 ABG O2 Saturation ABG Base Excess VBG pH VBG pCO2 VBG pO2 VBG HCO3 VBG Total CO2 VBG O2 Saturation VBG Base Excess Oxygen Liter Flow Sodium 124 L Potassium 3.3 L Chloride 84 L Carbon Dioxide 39.1 H Anion Gap 0.9 L BUN 7 Creatinine 0.7 Estimated GFR/1.73 m2 >= 60.00 Glucose 118 H Calcium 9.1 Magnesium 1.7 L Total Bilirubin 0.5 AST 15 ALT 20 Alkaline Phosphatase 105 Troponin I < 50 NT-Pro-B Natriuret Pep 875 H Total Protein 7.7 Albumin 3.6 Digoxin COVID-19 Source SARS-CoV-2 (PCR) 10/01/21 10/01/21 10/01/21 11:15 11:15 11:35 WBC RBC Hgb Hct MCV MCH MCHC RDW Plt Count MPV Immature Gran % Neutrophils % Lymphocytes % Monocytes % Eosinophils % Basophils % Nucleated RBC % Absolute Neutrophils Absolute Lymphocytes Absolute Monocytes Absolute Eosinophils Absolute Basophils D-Dimer ABG Sample Site ABG pH ABG pCO2 ABG pO2 ABG HCO3 ABG Total CO2 ABG O2 Saturation ABG Base Excess VBG pH 7.45 H VBG pCO2 64 H* VBG pO2 20 VBG HCO3 44 H VBG Total CO2 40 H VBG O2 Saturation 38 VBG Base Excess > 15 H Oxygen Liter Flow Sodium Potassium Chloride Carbon Dioxide Anion Gap BUN Creatinine Estimated GFR/1.73 m2 Glucose Calcium Magnesium Total Bilirubin AST ALT Alkaline Phosphatase Troponin I NT-Pro-B Natriuret Pep Total Protein Albumin Digoxin 1.15 COVID-19 Source Nasal/Nares SARS-CoV-2 (PCR) Negative 10/01/21 12:32 WBC RBC Hgb Hct MCV MCH MCHC RDW Plt Count MPV Immature Gran % Neutrophils % Lymphocytes % Monocytes % Eosinophils % Basophils % Nucleated RBC % Absolute Neutrophils Absolute Lymphocytes Absolute Monocytes Absolute Eosinophils Absolute Basophils D-Dimer ABG Sample Site Left Radial ABG pH 7.44 ABG pCO2 62 H* ABG pO2 77 L ABG HCO3 42 H ABG Total CO2 38 H ABG O2 Saturation 96 ABG Base Excess > 15 H VBG pH VBG pCO2 VBG pO2 VBG HCO3 VBG Total CO2 VBG O2 Saturation VBG Base Excess Oxygen Liter Flow 2 Sodium Potassium Chloride Carbon Dioxide Anion Gap BUN Creatinine Estimated GFR/1.73 m2 Glucose Calcium Magnesium Total Bilirubin AST ALT Alkaline Phosphatase Troponin I NT-Pro-B Natriuret Pep Total Protein Albumin Digoxin COVID-19 Source SARS-CoV-2 (PCR) Last Vital Signs Temp 36.4 C L 10/01/21 11:02 Pulse 86 10/01/21 14:46 Resp 20 10/01/21 14:46 BP 99/64 L 10/01/21 14:46 Pulse Ox 92 10/01/21 14:46 PAWSS Have you Been Recently Intoxicated or Drunk Within the Last 30 days?: No Result: 0
[2021-10-01] MEDS: MAGNESIUM SULFATE 2 GM/50 ML BAG IVPB (15:30)
[2021-10-01] MEDS: Furosemide 40 MG/4 ML VIAL IVP (15:30)
[2021-10-01] MEDS: Potassium Chloride 20 MEQ TABCR 40 MEQ PO ×2 (15:31→20:13)
[2021-10-01 15:55] LABS: Troponin I < 50 ng/L (<or=60)
[2021-10-01 16:26] LABS: Lab Add On Test DONE
[2021-10-01 17:05] LABS: Procalcitonin < 0.1 ng/mL
[2021-10-01] MEDS: Normal Saline Flush 10 ML SYR IVP (18:03)
[2021-10-01] MEDS: Cefpodoxime 200 MG TAB 400 MG PO (18:28)
[2021-10-01] MEDS: Doxycycline Hyclate 100 MG CAP PO (18:28)
[2021-10-01] MEDS: Omega-3 Fatty Acids 1000 MG CAP PO (20:13)
[2021-10-01] MEDS: Rivaroxaban 10 MG TABLET 20 MG PO (21:14)
[2021-10-01] MEDS: Tamsulosin 0.4 MG CAPCR PO (21:14)
[2021-10-02] VITALS (14 sets, daily range): BP systolic 110–144; BP diastolic 67–82; PULSE 74–98; RESP 16–20; TEMP 36.2–37.1; O2SAT 4–98
[2021-10-02] MEDS: Albuterol/Ipratropium 3 ML UPD VIAL UPD ×5 (00:45→23:07)
[2021-10-02] MEDS: Doxycycline Hyclate 100 MG CAP PO ×2 (06:26→17:11)
[2021-10-02] MEDS: Cefpodoxime 200 MG TAB 400 MG PO ×2 (06:26→17:11)
[2021-10-02 07:03] LABS: Abs Immature Grans 0.03 10^3/uL (0.0-0.06); Absolute Basophil Count 0.01 10^3/uL (0.0-0.2); Absolute Eosinophil Count 0.02 10^3/uL (0.0-0.7); Absolute Lymphocyte Count 0.82 10^3/uL (1.2-3.4); Absolute Neutrophil Count 7.21 10^3/uL (1.2-6.7); Basophils % 0.1; Eosinophils % 0.2; Immature Grans % 0.3; Lymphocytes % 9.2; MCHC 32.5 % (32.0-36.0); MCV 95.5 fL (80-95); MPV 9.4 fL (8.0-11.0); Neutrophils % 81.2; Nucleated RBC 0 %; Platelet Count 317 10^3/uL (130-400); RBC 4.19 10^6/uL (4.36-5.78); RDW 13.2 % (11.8-14.1); RDW-SD 46.2 fL; WBC 8.89 10^3/uL (4.4-10.8)
[2021-10-02 07:23] LABS: Anion Gap 4.3 mmol/L (3-11); BUN 13 mg/dL (7-18); CO2 34.7 mmol/L (21.0-32.0); CREATININE 0.6 mg/dL (0.70-1.30); Chloride 91 mmol/L (98-107); Glucose 137 mg/dL (74-106); Magnesium 2.1 mg/dL (1.8-2.4); Potassium 4.3 mmol/L (3.5-5.1); Sodium 130 mmol/L (136-145)
[2021-10-02] MEDS: Furosemide 40 MG/4 ML VIAL IVP (08:58)
[2021-10-02] MEDS: Normal Saline Flush 10 ML SYR IVP ×2 (08:59→09:01)
[2021-10-02] MEDS: Metoprolol CR 50 MG TABCR 100 MG PO (09:02)
[2021-10-02] MEDS: Multivitamin w/Minerals TAB 1 TAB PO (09:03)
[2021-10-02] MEDS: Digoxin 0.25 MG TAB PO (09:03)
[2021-10-02] MEDS: Potassium Chloride 20 MEQ TABCR 40 MEQ PO (09:03)
[2021-10-02] MEDS: predniSONE 20 MG TAB 40 MG PO (09:03)
[2021-10-02] MEDS: Finasteride 5 MG TAB PO (09:03)
[2021-10-02] MEDS: Calcium 600mg/Vit D 200U TAB 2 TAB PO (09:04)
[2021-10-02] MEDS: Ferrous Sulfate 325 MG TAB 650 MG PO (09:04)
[2021-10-02] MEDS: Atorvastatin 40 MG TAB PO (09:05)
[2021-10-02] MEDS: Ascorbic Acid 500 MG TAB 1000 MG PO (09:05)
[2021-10-02] MEDS: Omega-3 Fatty Acids 1000 MG CAP PO ×2 (09:06→19:22)
[2021-10-02] MEDS: Omeprazole 20 MG CAPCR 40 MG PO (09:06)
[2021-10-02] MEDS: Aspirin E.C. 81 MG TABEC PO (09:06)
[2021-10-02] MEDS: Albuterol 2.5 MG/3 ML INH SOLN VIAL UPD (09:34)
--- NOTE | 2021-10-02 09:35 | NUR.NOTE ---
Nursing Note: During medication administration this morning (around 0910), the patient started having an acute cough attack. The patient ended up spitting up some of his pills. The coughing went on for about 20 minutes, the patient finally agreed to allow the nurse to give him his PRN Albuterol nebulizer. At this time the coughing started to calm down and the patients SpO2 saturation went up from 88% to 93%.
--- NOTE | 2021-10-02 10:57 | PDOC.CMIN ---
- If Service Date Differs Date of service: 10/02/21 Time of Service: 10:57 Care Management Initial Assess REASON FOR HOSPITALIZATION:: Acute Hypoxia PAST MEDICAL HISTORY/PAST SURGICAL HISTORY:: All Active Problems. Hypoxia (Acute). COPD exacerbation (Acute). Discharge planning issues (Acute). DVT prophylaxis (Acute). Hypomagnesemia (Acute). Hypokalemia (Acute). Acute respiratory failure with hypoxia and hypercapnia (Acute). HTN (hypertension) (Chronic). Atherosclerosis of coronary artery without angina pectoris (Acute). Critical lower limb ischemia (Acute). Medical History. Abnormal LFTs (liver function tests). Acute systolic CHF (congestive heart failure). Anemia. CAD (coronary artery disease). Cardiomyopathy. COPD (chronic obstructive pulmonary disease). Hiatal hernia with GERD without esophagitis. History of alcoholism. History of anemia. HLD (hyperlipidemia). Hyperkalemia. Hypo-osmolality and hyponatremia. Intermittent claudication. Lumbosacral radiculopathy. NSTEMI (non-ST elevated myocardial infarction). Overweight. PAD (peripheral artery disease). Pain in right knee. Pulmonary hyperinflation. Stenosis of artery of left lower extremity. Surgical History. Hx of vascular surgery. LLE. PREVIOUS FUNCTIONAL STATUS/SOCIAL/FAMILY SUPPORTS:: Bhanu lives in [place], alone. His sister, Emy lives nearby and is supportive. Bhanu does not work, and has been on disability for about a year. He is independent at baseline, although he has support from weekly to help with housekeeping. CURRENT FUNCTIONAL STATUS:: Bhanu was sitting up in his chair when CM met with him. He reported that he was feeling good, although he stated that he felt fairly well when he arrived as well. He was on supplemental O2, and reported that he had met with RT, and he would likely be discharged with home O2. Per report, he was having an echo today. CM will continue to follow. ADVANCE DIRECTIVES:: Agent appointment on file, Bhanu Dunaway II listed as agent. Has patient been provided with info about the portal/API?: Yes Did the patient sign up for the portal?: No CODE STATUS:: Full Code INSURANCE COVERAGE / FINANCIAL ISSUES:: [employer] CURRENT HOME/COMMUNITY SERVICES/EQUIPMENT:: weekly for housekeeping support. No equipment currently. PRIMARY CARE PHYSICIAN:: Reji Andrews POTENTIAL DISCHARGE NEEDS:: Evaluations for further needs, follow up appointments. PATIENT/FAMILY EDUCATION NEEDS:: Review discharge instructions regarding activity levels and medications, discussion of self care needs including ask me three. ANTICIPATED BARRIERS TO DISCHARGE:: None identified. TRANSPORTATION:: Via private vehicle by his sister. PLAN:: Bhanu will return home when medically cleared. His sister will drive him home via private vehicle when ready. He will follow up with his PCP and discharge plan of care. CM will continue to follow.
--- NOTE | 2021-10-02 11:04 | PHA.REVIEW ---
Pharmacy Admission Review - Admission Clinical Review (Last Updated 10/01/21 @ 18:03 by Laura Frost MD) Hypoxia (Acute) COPD exacerbation (Acute) Discharge planning issues (Acute) DVT prophylaxis (Acute) Hypomagnesemia (Acute) Hypokalemia (Acute) Acute respiratory failure with hypoxia and hypercapnia (Acute) No Known Allergies Allergy (Verified 10/01/21 13:02) Resuscitation Status Full Code Height 5 ft 8 in Weight 78.1 kg - Renal Dosing Renal Dosing: BUN 13 mg/dL (7-18) D 10/02/21 06:35 Creatinine 0.6 mg/dL (0.70-1.30) L 10/02/21 06:35 Medications needing adjustments: Reviewed (Crcl ~95 mL/min current meds okay) - Anticoagulation Anticoagulation: Hgb 13.0 g/dL (13.5-17.5) L 10/02/21 06:35 Hct 40.0 % (40.0-50.0) 10/02/21 06:35 Plt Count 317 10^3/uL (130-400) 10/02/21 06:35 Creatinine 0.6 mg/dL (0.70-1.30) L 10/02/21 06:35 DVT Prophylaxis: N/A Therapeutic Anticoagulation: Reviewed Medications: Rivaroxaban - Opiate Usage Evaluate Pain Scale/Pains Meds: N/A - Relevant Labs Sodium 130 mmol/L (136-145) L 10/02/21 06:35 Potassium 4.3 mmol/L (3.5-5.1) D 10/02/21 06:35 Chloride 91 mmol/L (98-107) L 10/02/21 06:35 Magnesium 2.1 mg/dL (1.8-2.4) 10/02/21 06:35 Electrolytes, C-Reactive P, ESR: Reviewed (K+ improved since admission, still has scheduled K+ replacement ordered.) - DM Control DM Control: Glucose 137 mg/dL (74-106) H 10/02/21 06:35 Insulin Dosing: N/A (BG mildly elevated, pt is on a steroid, no DM noted in medical history and no A1c on file.) - Heart Failure/NM Heart Failure/NM: Troponin I < 50 ng/L (<or=60) 10/01/21 15:20 NT-Pro-B Natriuret Pep 875 pg/mL (<300) H 10/01/21 11:15 EF%, SADIA's, B-Blockers, Diuretics: Reviewed - BP Control BP Control: Blood Pressure 124/69 Blood Pressure 110/67 Blood Pressure 110/67 If elevated: Reviewed (BP has been up and down a bit since admission but has been within normal limits so far today.) - Qtc Review If Elevated: N/A (QTc 449 on admission) - IV to PO Switch IV Medications: Reviewed - Home Meds Home Med List reviewed: Intervened (Pharmacist on yesterday evening updated the gabapentin dosing on the home med list as the dosing changed per the external med history.) - Current meds Current Medication Order Review: Intervened (discontinued duplicate med orders) - Comments Comments/Follow Ups: Watch BP, K+, labs, for culture results and for med changes. Antibiotic Activity - Pharmacy Antibiotic Review Pharmacy Antibiotic Activity: C/S review (Sputum culture pending, per gram stain rare gram positive laya. PO doxycycline and cefpodoxime continue (day 2 starts this evening).)
--- NOTE | 2021-10-02 11:24 | DI.US_ITS ---
APPROVED REPORT EXAM: Comprehensive 2D, Doppler, and color-flow Echocardiogram Patient Location: In-Patient Student Life Dean: Rose Fischer RDCS (AE) Indications: CHF Other Information Study Quality: Adequate Conclusion Normal left ventricular wall thickness and chamber size. Estimated ejection fraction is 55%. There is akinesis of the anteroapical, anteroseptal, inferoapical and distal anterolateral de anda Normal right ventricular size and systolic function Both atria are normal in size There is aortic valve sclerosis without stenosis or regurgitation Mildly thickened mitral leaflets with mild regurgitation Trace tricuspid regurgitation. Estimated right ventricular systolic pressure is 34 mmHg Wall motion Left Ventricle The left ventricle is normal size. Left ventricular systolic function is borderline. There is normal left ventricular wall thickness. Regional wall motion abnormalities are noted. There is no ventricula r septal defect visualized. LVEF is 55%. Right Ventricle The right ventricle is normal size. The right ventricular systolic function is normal. The RVSP is 33 .9 mmHg. Atria The left atrium size is normal. The right atrium size is normal. Atrial septal aneurysm is present. Aortic Valve The Aortic valve is sclerotic. Number of aortic valve leaflets could not be assessed. There is no aor tic valvular stenosis. No aortic regurgitation is present. Mitral Valve Mitral valve leaflets are mildly thickened. No evidence of mitral valve stenosis. Mild mitral regurgi tation. Tricuspid Valve The tricuspid valve is normal in structure. There is no tricuspid valve stenosis. Trace tricuspid reg urgitation. Pulmonic Valve Pulmonic valve is not well visualized. There is no pulmonic valvular stenosis. There is no pulmonic v alvular regurgitation. Great Vessels The aortic root is normal in size. Ascending aorta is not well visualized. Aortic arch is not well vi sualized. The IVC collapses <50% with inspiration. Pericardium There is no pericardial effusion. 2D Dimensions IVSD d PLAX 1.22 cm M: 0.6-1.2 LV Vol A2C d MOD 128.7 mL LVPW d PLAX 1.21 cm M: 0.6 - 1.2 LV Vol A4C d MOD 110.3 mL LVID d PLAX 4.46 cm M: 4.2 - 5.8 LA vol/ BSA A2C s A-L 31.9 mL/m2 LVDs 3.20 cm M: 2.5 - 4.0 LA vol/ BSA A4C s A-L 25.8 mL/m2 Ao Root d 2.72 cm M: 3.1 - 3.7 LA Vol/ BSA Biplane s A-L 29.2 mL/m2 RA Area A4C 18.63 cm2 LA Area A4C s MOD 18.40 cm2 RA Vol/ BSA A4C s A-L 29.3 mL/m2 LA Area A2C s MOD 20.12 cm2 LV EF Teichholz 54.7 % LV EF A4C MOD 54.5 % LVEF (Forman's) 54.36 % M: 52 - 72 LV EF A2C MOD 55.2 % LV Volume 91.27 mL M: 62 - 150 LV EF Biplane MOD 54.4 % LV Volume Index 48.03 mL/m2 M: 34 - 74 SV 65.04 mL LV Vol Biplane MOD 119.7 mL SV Index 34.18 mL/m2 FS 28.20 % M-Mode TAPSE 2.50 cm (M/F) >1.7 LV Diastology MV E' medial 0.072 (>0.07 m/s) E/A Ratio 0.8 LV E/e MED 10.95 (<14) MV E Vmax 0.79 (0.4-1.3 m/s) MV E' lateral 0.095 (>0.1 m/s) MV A Vmax 1.00 (0.4-1.3 m/s) LV E/e LAT 8.30 (<14) MV E/A Ratio 0.79 MV E/E' medial 10.99 MV E/E' lateral 8.34 Aortic Valve LVOT Area 3.16 cm2 AoV Area Vmax 2.10 cm2 LVOT Vmax 1.29 m/s AoV Area/ BSA (Vmax) 1.11 cm2/m2 LVOT Mean John. 0.77 m/s CLAUDIA Mean John. 1.78 cm2 LVOT Peak Grad 6.7 mmHg CLAUDIA Mean John. Index 0.93 cm2/m2 LVOT Mean Grad 2.9 mmHg LVOT VTI 0.255 m LVOT Diam s 2.00 cm AoV Vmax 1.94 m/s Velocity Ratio 0.66 AoV Mean John. 1.36 m/s AoV Peak Grad 15.0 mmHg LVOT SV 80.55 mL AoV Mean Grad 8.3 mmHg AoV VTI 0.360 m AoV Area VTI 2.24 cm2 AoV Area/ BSA (VTI) 1.18 cm/m2 Mitral Valve MV DT 222 (160-240 msec) MV PHT 64 msec MV Area PHT 3.41 cm2 MV VTI 0.215 m MV Area VTI 3.75 (4.0-6.0 cm2) Pulmonary Valve PV Vmax 0.93 (0.5-1.5 m/s) RVOT Peak Gr. 2.92 mmHg PV Peak Grad 3.5 mmHg RVOT Mean Gr. 1.35 mmHg PV Mean Grad 2.2 mmHg RVOT VTI 0.146 m PV VTI 0.179 m RVOT Vmax 0.85 m/s Tricuspid Valve TR Peak Grad 25.8 mmHg TR Vmax 2.54 m/s RA Pressure 8.00 mmHg RVSP (TR) 33.9 mmHg
--- NOTE | 2021-10-02 14:27 | W.PM.PROGNOT ---
Date of Service Date of service: 10/02/21 Time of Service: 14:27 Assessment and Plan Assessment and plan (1) Acute respiratory failure with hypoxia and hypercapnia: Status: Acute Assessment and plan: still requiring oxygen, now at 4 liters but states asymptomatic. Multifactorial. Due to acute exacerbation of COPD/acute bronchitis as well as mild exacerbation of CHF. Continue steroids; add antibiotics, continue scheduled and prn nebs. Wean O2 as tolerated. Diurese. (2) COPD (chronic obstructive pulmonary disease): Assessment and plan: As above. continue doxycycline/cefpodoxime day 2 Continue scheduled and prn nebs. Addition of symbicort. (3) Cardiomyopathy: Assessment and plan: causing chronic systolic CHF, presumably ischemic in nature. Obtain PCP records. Obtain echo. Diurese. Monitor I/O's and daily weights. Qualifiers: Cardiomyopathy type: ischemic Qualified Code(s): I25.5 - Ischemic cardiomyopathy (4) Hypokalemia: Status: Acute Assessment and plan: Replete, recheck in am (5) Hypomagnesemia: Status: Acute Assessment and plan: Replete; recheck in am (6) DVT prophylaxis: Status: Acute Assessment and plan: On therapeutic xarelto (7) Discharge planning issues: Status: Acute Assessment and plan: Full code home when able, oxygen prescription discussed with DR Frost Subjective Subjective Patient reports: no new complaints, feels better, tolerating liquids well, tolerating a regular diet and afebrile Interval history since last seen: denies shortness of breath, oxygen drop while resting on room air to 84 %, he was requiring 4 liters of oxygen at maintains sats in low 90's desatting to 88% while ambulating on 4 liters. otherwise he has no c/o Exam Const General: cooperative, comfortable, no acute distress and ill appearing (older than stated age) chronically Nutritional Appearance: average body habitus Orientation: alert, awake and oriented x3 [facility] Head: normal to inspection, normocephalic and atraumatic Mouth: oral mucosae normal Resp Effort & Inspection: normal respiratory effort Auscultation: diminished lung sounds (throughout, no wheezing or rhonchi) bilaterally Cardio Rate: regular rate Rhythm: regular rhythm GI Inspection: normal to inspection Palpation: soft Skin General skin exam: other (flushed) Neuro General: patient alert, patient awake, patient oriented x3 and no focal motor deficits Motor: muscle tone normal throughout and strength 5/5 throughout Extrem General: normal to inspection and full ROM Objective Last Vital Signs Temp 36.7 C 10/02/21 12:39 Pulse 82 10/02/21 12:39 Resp 18 10/02/21 12:39 BP 130/77 10/02/21 12:39 Pulse Ox 91 L 10/02/21 12:46 Laboratory Results - last 24 hr 10/01/21 10/01/21 10/01/21 11:15 15:20 15:20 WBC RBC Hgb Hct MCV MCH MCHC RDW Plt Count MPV Immature Gran % Neutrophils % Lymphocytes % Monocytes % Eosinophils % Basophils % Nucleated RBC % Absolute Neutrophils Absolute Lymphocytes Absolute Monocytes Absolute Eosinophils Absolute Basophils Sodium Potassium Chloride Carbon Dioxide Anion Gap BUN Creatinine Estimated GFR/1.73 m2 Glucose Calcium Magnesium Troponin I < 50 Procalcitonin < 0.1 Digoxin 1.15 Add-On Test Request 10/01/21 10/02/21 10/02/21 16:23 06:35 06:35 WBC 8.89 RBC 4.19 L Hgb 13.0 L Hct 40.0 MCV 95.5 H D MCH 31.0 MCHC 32.5 RDW 13.2 Plt Count 317 MPV 9.4 Immature Gran % 0.3 Neutrophils % 81.2 Lymphocytes % 9.2 Monocytes % 9.0 Eosinophils % 0.2 Basophils % 0.1 Nucleated RBC % 0 Absolute Neutrophils 7.21 H Absolute Lymphocytes 0.82 L Absolute Monocytes 0.80 Absolute Eosinophils 0.02 Absolute Basophils 0.01 Sodium 130 L Potassium 4.3 D Chloride 91 L Carbon Dioxide 34.7 H Anion Gap 4.3 BUN 13 D Creatinine 0.6 L Estimated GFR/1.73 m2 >= 60.00 Glucose 137 H Calcium 9.0 Magnesium 2.1 Troponin I Procalcitonin Digoxin Add-On Test Request DONE PAWSS Have you Been Recently Intoxicated or Drunk Within the Last 30 days?: No Result: 0
[2021-10-02] MEDS: Rivaroxaban 10 MG TABLET 20 MG PO (17:11)
[2021-10-02] MEDS: Budesonide/Formoterol 80/4.5 6.9 GM 60 PUFF INH IH (19:23)
[2021-10-02] MEDS: Gabapentin 600 MG TAB PO (19:29)
[2021-10-03] VITALS (8 sets, daily range): BP systolic 132–151; BP diastolic 70–76; PULSE 60–111; RESP 14–22; TEMP 36.8–36.9; O2SAT 86–95
[2021-10-03] MEDS: Cefpodoxime 200 MG TAB 400 MG PO (05:44)
[2021-10-03] MEDS: Albuterol/Ipratropium 3 ML UPD VIAL UPD ×2 (05:44→11:32)
[2021-10-03] MEDS: Doxycycline Hyclate 100 MG CAP PO (05:44)
[2021-10-03 07:17] LABS: Anion Gap 3.2 mmol/L (3-11); BUN 17 mg/dL (7-18); CO2 34.8 mmol/L (21.0-32.0); CREATININE 0.6 mg/dL (0.70-1.30); Calcium 9.2 mg/dL (8.5-10.1); Chloride 91 mmol/L (98-107); Glucose 109 mg/dL (74-106); Potassium 4.6 mmol/L (3.5-5.1); Sodium 129 mmol/L (136-145)
[2021-10-03] MEDS: Budesonide/Formoterol 80/4.5 6.9 GM 60 PUFF INH IH (08:32)
[2021-10-03] MEDS: Calcium 600mg/Vit D 200U TAB 2 TAB PO (08:38)
[2021-10-03] MEDS: Digoxin 0.25 MG TAB PO (08:38)
[2021-10-03] MEDS: Metoprolol CR 50 MG TABCR 100 MG PO (08:40)
[2021-10-03] MEDS: Gabapentin 600 MG TAB PO (08:40)
[2021-10-03] MEDS: Aspirin E.C. 81 MG TABEC PO (08:40)
[2021-10-03] MEDS: predniSONE 20 MG TAB 40 MG PO (08:40)
[2021-10-03] MEDS: Ferrous Sulfate 325 MG TAB 650 MG PO (08:41)
[2021-10-03] MEDS: Finasteride 5 MG TAB PO (08:41)
[2021-10-03] MEDS: Atorvastatin 40 MG TAB PO (08:41)
[2021-10-03] MEDS: Multivitamin w/Minerals TAB 1 TAB PO (08:41)
[2021-10-03] MEDS: Omega-3 Fatty Acids 1000 MG CAP PO (08:41)
[2021-10-03] MEDS: Furosemide 40 MG/4 ML VIAL IVP (08:41)
[2021-10-03] MEDS: Omeprazole 20 MG CAPCR 40 MG PO (08:42)
[2021-10-03] MEDS: Ascorbic Acid 500 MG TAB 1000 MG PO (08:42)
[2021-10-03] MEDS: Normal Saline Flush 10 ML SYR IVP (08:42)
--- NOTE | 2021-10-03 11:32 | RESPIRATORY ---
HOME O2 ORDERED FOR PT THROUGH [facility]
--- NOTE | 2021-10-03 13:21 | DSE_ITS ---
Date of service: 10/03/21 Time of Service: 13:22 DS: Diagnosis Discharge Diagnosis (1) Acute respiratory failure with hypoxia and hypercapnia: Status: Acute (2) COPD (chronic obstructive pulmonary disease): (3) Cardiomyopathy: (4) Hypokalemia: Status: Acute (5) Hypomagnesemia: Status: Acute (6) DVT prophylaxis: Status: Acute (7) Discharge planning issues: Status: Acute Discharge Plan Disposition Patient Disposition: HOME W/HOME HEALTH SERVICE Condition: Stable Discharge Details Reason For Visit: Acute Hypoxia Admit Date/Time: 10/01/21 15:10 Admit Provider: Laura Frost Attending Provider: Laura Frost Primary Care Provider: Reji Andrews Hospital Course Hospital Course: This is a 61 year old male with history of copd, htn, CAD, cataracts who pr esented to a scheduled cataract extraction appointment and found to be hypoxic. He reports he has had cough since april 2021 but has had sputum production since he previous surgery on other eye 2 weeks ago. He was sent to the ED for evaluation of sats in the low 80's at rest. He is fully vaccinated and boosted against Covid-19.? He was found to be hypoxic in the ED with O2 sats of 87% on RA. Due to his WOB, he was considered for BiPAP therapy, but because his ABG revealed respiratory alkalosis, this was deferred. Workup in the ED involved a negative COVID-19 PCR (also had a negative test 3 days ago), a negative CXR, a subpleural infiltrate in LLL and no PE on CTA. He is requiring 2L of O2 at rest but is still desaturating to mid-80s on ambulation on 2L. Hospitalist admission was requested for a presumed COPD exacerbation. He was started on a steroid burst and cefpodoxime and doxycycline in setting of increased sputum production and new hypoxia. His echo report: Conclusion Normal left ventricular wall thickness and chamber size.? Estimated ejection fraction is 55%.? There is akinesis of the anteroapical, anteroseptal, inferoapical and distal anterolateral de anda Normal right ventricular size and systolic function Both atria are normal in size There is aortic valve sclerosis without stenosis or regurgitation Mildly thickened mitral leaflets with mild regurgitation Trace tricuspid regurgitation.? Estimated right ventricular systolic pressure is 34 mmHg He continued to require oxygen up to 4 liters with ambulation and qualified for home oxygen. He will continue 5 days of antibiotics and steroids. He was also started on symbicort and should follow up outpatient for further evaluation. he is being discharged to home with home health services. discharge discussed with DR Frost Home Meds and New Rx's Prescriptions: New prednisone 20 mg Tablet 40 mg PO DAILY Qty: 6 0RF cefpodoxime 200 mg Tablet 400 mg PO Q12H Qty: 10 0RF budesonide-formoterol [Symbicort] 80-4.5 mcg/actuation Hfa Aerosol Inhaler 2 puff inhalation BID Qty: 1 0RF doxycycline hyclate 100 mg tablet 100 mg PO BID Qty: 5 0RF Continued furosemide [Lasix] 40 mg Tablet 40 mg PO DAILY 0RF atorvastatin 40 mg Tablet 40 mg PO DAILY 0RF acetaminophen 325 mg Tablet 650 mg PO Q6H PRN0RF metoprolol succinate 50 mg Tablet Extended Release 24 Hr 100 mg PO DAILY 0RF digoxin 250 mcg (0.25 mg) Tablet 250 mcg PO DAILY 0RF omeprazole 40 mg Capsule,Delayed Release(Dr/Ec) 40 mg PO DAILY 0RF tamsulosin 0.4 mg Capsule 0.4 mg PO HS 0RF ferrous sulfate 325 mg (65 mg iron) Tablet 650 mg PO DAILY 0RF aspirin 81 mg Tablet 81 mg PO DAILY 0RF albuterol sulfate [ProAir HFA] 90 mcg/actuation Hfa Aerosol Inhaler 2 puff INHALATION Q6H PRN0RF finasteride 5 mg Tablet 5 mg PO DAILY 0RF calcium carbonate-vitamin D3 200 mg (500 mg) -400 unit Tablet 2 tab PO DAILY 0RF Xarelto 20 mg Tablet 20 mg PO DAILY 0RF multivitamin with folic acid 400 mcg Tablet 1 tab PO DAILY 0RF ascorbic acid (vitamin C) 500 mg Capsule 1,000 mg PO DAILY 0RF omega-3 fatty acids Capsule 1 cap PO BID 0RF gabapentin 600 mg tablet 600 mg PO DAILY 0RF Label Comments: TAKE ONE TABLET BY MOUTH EVERY DAY Discharge Instructions Instructions: COPD (Chronic Obstructive Pulmonary Disease) (DC) Additional Instructions: finish antibiotic and steroids as directed even if you feel better wear oxygen as directed. Stand Alone Forms: Nursing Discharge Form Referrals: Reji Andrews [Primary Care Provider] - 10/15/21 2:40 am Activity:: Activity as Tolerated Equipment/Supplies:: Oxygen (L/min Below) Diet:: As Tolerated Discharge Orders Discharge Orders: Discharge Order (Routine); Ordered 10/03/21 Ordered By: Jayne Forte Discharge Data Discharge Date/Time-TO BE ENTERED AT DEPARTURE: 10/03/21 14:59 DS: Summary Time Spent with Patient providing and/or coordinating discharge services: Greater than 30 minutes Status at Discharge Functional status at discharge: independent ambulation Overall status at discharge: patient is not back to baseline Mental Status: mental status grossly normal Speech and Movement: speech and movement normal Mood: congruent mood Affect: normal affect Exam Const General: cooperative, comfortable, no acute distress and ill appearing (older than stated age) chronically Nutritional Appearance: average body habitus Orientation: alert, awake and oriented x3 [facility] Head: normal to inspection, normocephalic and atraumatic Mouth: oral mucosae normal Resp Effort & Inspection: normal respiratory effort Auscultation: diminished lung sounds (throughout, no wheezing or rhonchi) bilaterally Cardio Rate: regular rate Rhythm: regular rhythm GI Inspection: normal to inspection Palpation: soft Skin General skin exam: other (flushed) Neuro General: patient alert, patient awake, patient oriented x3 and no focal motor deficits Motor: muscle tone normal throughout and strength 5/5 throughout Extrem General: normal to inspection and full ROM Psych Mental Status: mental status grossly normal Speech and Movement: speech and movement normal Mood: congruent mood Affect: normal affect DS: Data Vitals/I&O Vitals and I&O: Vital Signs Temperature 36.9 C 10/03/21 11:00 Temperature Source Tympanic 10/03/21 11:00 Pulse 84 10/03/21 11:32 Pulse Rhythm Regular 10/03/21 12:22 Pulse 98 H 10/01/21 15:46 Respiratory Rate 16 10/03/21 11:32 Respiratory Effort 10/03/21 12:22 Respiratory Depth Normal 10/03/21 12:22 Respiratory Pattern Normal 10/03/21 12:22 Blood Pressure 132/70 10/03/21 11:00 Blood Pressure Mean 75 10/01/21 16:15 Blood Pressure Position Supine 10/01/21 11:02 Pulse Oximetry 92 10/03/21 11:32 Oxygen Delivery Method Nasal Cannula 10/03/21 11:32 Oxygen Flow Rate 4 10/03/21 11:00 Pain Level 0 10/03/21 03:32 Comment 10/02/21 06:39 Intake & Output 10/02/21 10/03/21 10/03/21 23:59 11:59 23:59 Intake Total 720 / 720 Output Total 1500 / 1925 600 / 600 Balance -1500 / -1515 120 / 120 Intake: Oral 720 / 720 Output: Urine 1500 / 1925 600 / 600 Other: Urine Color Pale Yellow Yellow Urine Appearance Clear Clear Urine Odor Normal None Comment unknown amount, pt stated he voided in the toilet. Voiding Methods Urinal Urinal Data Completed and Pending Labs on day of discharge: Labs from last 24 hours 10/03/21 06:20 Sodium 129 L Potassium 4.6 Chloride 91 L Carbon Dioxide 34.8 H Anion Gap 3.2 BUN 17 Creatinine 0.6 L Estimated GFR/1.73 m2 >= 60.00 Glucose 109 H Calcium 9.2 Magnesium 2.0 Preliminary micro results at discharge 10/02/21 07:37 Sputum Culture - Preliminary Sputum Normal [place] PFSH All Active Problems (Updated 10/01/21 @ 18:09 by Laura Frost MD) Hypoxia (Acute) COPD exacerbation (Acute) Discharge planning issues (Acute) DVT prophylaxis (Acute) Hypomagnesemia (Acute) Hypokalemia (Acute) Acute respiratory failure with hypoxia and hypercapnia (Acute) HTN (hypertension) (Chronic) Atherosclerosis of coronary artery without angina pectoris (Acute) Critical lower limb ischemia (Acute) Medical History (Updated 10/01/21 @ 18:09 by Laura Frost MD) Abnormal LFTs (liver function tests) Acute systolic CHF (congestive heart failure) Anemia CAD (coronary artery disease) Cardiomyopathy COPD (chronic obstructive pulmonary disease) Hiatal hernia with GERD without esophagitis History of alcoholism History of anemia HLD (hyperlipidemia) Hyperkalemia Hypo-osmolality and hyponatremia Intermittent claudication Lumbosacral radiculopathy NSTEMI (non-ST elevated myocardial infarction) Overweight PAD (peripheral artery disease) Pain in right knee Pulmonary hyperinflation Stenosis of artery of left lower extremity Surgical History Hx of vascular surgery LLE. Family History (Updated 10/01/21 @ 18:03 by Laura Frost MD) Father Hypertension Mother Cancer ovarian cancer Social History (Updated 10/01/21 @ 18:04 by Laura Frost MD) Smoking/Tobacco Use Status: Current every day Tobacco Type: cigarettes Smoking packs per day: 0.75 Smoking cigarettes per day: 15.0 Years smoked: 45 Smoking pack-years: 33.75 Quit status: considering quitting Counseling given: provider counseling and support medications Smoking risk assessment performed?: Yes Alcohol Intake: current Alcohol Intake frequency: a few times a month Substance use type: does not use Do you feel safe at home: Yes Do you feel safe in your relationship?: Yes
--- NOTE | 2021-10-03 13:30 | PDOC.HHF2F_ITS ---
Home Health Certification Home Health Certification: 1. Encounter Date and Reason I certify that Bhanu Dunaway was seen by Jayne Forte on 10/03/21 and that I had a [id number] encounter with this patient that meets the physician face to face encounter requirements. 2. Clinical Findings Supporting Skilled Need and Homebound Status I certify that home health services are medically necessary, include either intermittent penitentiary and/or physical/speech therapy, and that this patient is homebound in that absences from the home require considerable and taxing effort and are infrequent or of short duration, or are attributable to the need to receive medical care. [X] (a) Attached documentation from encounter provides clinical findings supporting skilled need and homebound status (including what assistance patient requires to leave the home). The encounter with the patient was in whole, or in part, for the following medical condition, which is the primary reason for home health care: Acute Hypoxia, COPD exacerbation [facility]: routine nursing for evaluation, medication oversight, new oxygen Physical and Occupational Therapy: routine evaluation and treatment Homebound: unable to safely leave house unattended due to ambulation severely limited due to shortness of breath, hypoxia and decreased strength and endurance. 3. Certification and Authentication I certify that I composed the above information based on my clinical judgment relating to this patient's medical condition and, if applicable, clinical findings communicated to me by the NPP or inpatient physician who performed the Home Health Referral. All further orders will be obtained through __Reji Andrews__(Community Based Physician - PCP)
--- NOTE | 2021-10-03 17:32 | PDOC.CMDIS ---
- If Service Date Differs Date of service: 10/03/21 Time of Service: 17:32 LACE Index Scoring Tool - Questions: Length of Stay (in days): 2 Acuity (Admit via E.D.?): Yes Comorbidities: Previous M.I., Congestive Heart Failure, Chronic Pulmonary Disease E.D. Visits: 1 - Answers: Total Score: 11 Risk of Readmission: High Risk Care Management Discharge Reason for Hospitalization: Acute Hypoxia Discharge Plan: Bhanu returned home today with new orders for HH RN, PT, OT. He also has new orders for home O2, which RT coordinated with [facility]. [facility] will meet him at home today to set him up with O2. His son will drive him home via private vehicle. He will follow up with his PCP and discharge plan of care. He is happy to be going home. Patient/Family Education Needs: Review discharge instructions regarding activity levels and medications/home O2, discussion of self care needs including ask me three. Services Needed at Discharge: Home Health Care Services (HH RN, PT, OT), Oxygen Therapy ([facility], 4L O2 with ambulation)
== END 2021-10-03 14:59 | disposition home health service (06) ==
LOC: ER 15:37 → MS 18:22
PROVIDERS: Admitting Provider Internal Medicine; Emergency Provider Nurse Practitioner Family; PCP Internal Medicine; Visit Provider Internal Medicine
DX: J44.1 Chronic obstructive pulmonary disease with (acute) exacerbation (principal); I50.23 Acute on chronic systolic (congestive) heart failure; J96.01 Acute respiratory failure with hypoxia; J96.02 Acute respiratory failure with hypercapnia; I25.5 Ischemic cardiomyopathy; E87.6 Hypokalemia; E83.42 Hypomagnesemia; I25.10 Atherosclerotic heart disease of native coronary artery without angina pectoris; Z79.01 Long term (current) use of anticoagulants; F17.210 Nicotine dependence, cigarettes, uncomplicated; E78.5 Hyperlipidemia, unspecified; I11.0 Hypertensive heart disease with heart failure; I73.9 Peripheral vascular disease, unspecified; R05.3 Chronic cough; I25.2 Old myocardial infarction; K21.9 Gastro-esophageal reflux disease without esophagitis; D64.9 Anemia, unspecified; Z20.822 Contact with and (suspected) exposure to COVID-19; J44.0 Chronic obstructive pulmonary disease with (acute) lower respiratory infection; J20.9 Acute bronchitis, unspecified
CPT/HCPCS: 36415; 71275; 80048; 80053; 82805; 84145; 87635; 93005; 94618; 94640; 96365; 96375; 99285; 36600; 71045; 80162; 83735; 83880; 84484; 85025; 85379; 87070; 87205; 93010; 93306; 94667; 99217; 99223; 99226; G0378; J1940; J2930; J7512; J7613; J7620

== ENCOUNTER 2021-10-24 02:13 | Outpatient (CLI) | payer MEDICAID, SELFPAY ==
[2021-10-24 09:39] LABS: Source Nasal/Nares
[2021-10-24 14:08] LABS: COVID-19 PCR Negative (Negative)
== END 2021-10-24 02:14 | disposition home or self-care (01) ==
LOC: LBO 02:13
PROVIDERS: PCP Internal Medicine; Visit Provider Ophthalmology
DX: Z20.822 Contact with and (suspected) exposure to COVID-19 (principal)
CPT/HCPCS: 87635

== ENCOUNTER 2021-10-26 08:57 | Day surgery (SDC) | payer MEDICAID, SELFPAY ==
--- NOTE | 2021-10-26 07:14 | HPE_ITS ---
Assessment and Plan Assessment and plan (1) Cortical cataract of left eye: Status: Acute Assessment and plan: Assessment: Visually significant cataract of the left eye. Plan: Cataract extraction with lens implantation of the left eye. (2) Nuclear sclerotic cataract of left eye: Status: Acute Assessment and plan: Assessment: Visually significant cataract of the left eye. Plan: Cataract extraction with lens implantation of the left eye. (3) Posterior subcapsular age-related cataract of left eye: Status: Acute Assessment and plan: Assessment: Visually significant cataract of the left eye. Plan: Cataract extraction with lens implantation of the left eye. History of Present Illness History of Present Illness Chief Complaint: Progressive decreased vision, left eye Narrative: The patient is a 61-year-old male with history of progressive decreased vision in both eyes is noted to have significant bilateral nuclear/cortical/posterior subcapsular cataract in both eyes. He underwent cataract surgery in the right eye on 09/17/2021 and is doing well postoperatively with uncorrected vision of 20/30. He now presents for cataract surgery in the left eye. Review of Systems All systems reviewed & are unremarkable except as noted in HPI and below PFSH All Active Problems Posterior subcapsular age-related cataract of left eye (Acute) Nuclear sclerotic cataract of left eye (Acute) Cortical cataract of left eye (Acute) Hypoxia (Acute) COPD exacerbation (Acute) HTN (hypertension) (Chronic) Atherosclerosis of coronary artery without angina pectoris (Acute) Critical lower limb ischemia (Acute) Medical History Abnormal LFTs (liver function tests) Acute respiratory failure with hypoxia and hypercapnia Acute systolic CHF (congestive heart failure) Anemia CAD (coronary artery disease) Cardiomyopathy COPD (chronic obstructive pulmonary disease) Hiatal hernia with GERD without esophagitis History of alcoholism History of anemia HLD (hyperlipidemia) Hyperkalemia Hypo-osmolality and hyponatremia Intermittent claudication Lumbosacral radiculopathy NSTEMI (non-ST elevated myocardial infarction) Overweight PAD (peripheral artery disease) Pain in right knee Pulmonary hyperinflation Stenosis of artery of left lower extremity Surgical History Hx of vascular surgery LLE. Family History Father Hypertension Mother Cancer ovarian cancer Social History Smoking/Tobacco Use Status: Current every day Tobacco Type: cigarettes Smoking packs per day: 0.75 Smoking cigarettes per day: 15.0 Years smoked: 45 Smoking pack-years: 33.75 Quit status: considering quitting Counseling given: provider counseling and support medications Smoking risk assessment performed?: Yes Alcohol Intake: current Alcohol Intake frequency: a few times a month Substance use type: does not use Do you feel safe at home: Yes Do you feel safe in your relationship?: Yes Meds Allergies and Home Medications Allergies Allergy/AdvReac Type Severity Reaction Status Date / Time No Known Allergies Allergy Verified 10/26/21 09:24 Home Medications Medication Instructions Recorded Confirmed Type acetaminophen 325 mg tablet 650 mg PO Q6H PRN 05/23/21 10/26/21 History albuterol sulfate 90 mcg/actuation 2 puff INHALATION Q6H PRN 05/23/21 10/24/21 History aerosol inhaler (ProAir HFA) ascorbic acid (vitamin C) 500 mg 1,000 mg PO DAILY 05/23/21 10/26/21 History capsule aspirin 81 mg tablet 81 mg PO DAILY 05/23/21 10/26/21 History atorvastatin 40 mg tablet 40 mg PO DAILY 05/23/21 10/26/21 History calcium carbonate 200 mg calcium 2 tab PO DAILY 05/23/21 10/24/21 History (500 mg)-vitamin D3 400 unit tablet digoxin 250 mcg (0.25 mg) tablet 250 mcg PO DAILY 05/23/21 10/26/21 History ferrous sulfate 325 mg (65 mg 650 mg PO DAILY 05/23/21 10/26/21 History iron) tablet finasteride 5 mg tablet 5 mg PO DAILY 05/23/21 10/26/21 History furosemide 40 mg tablet (Lasix) 40 mg PO DAILY 05/23/21 10/26/21 History metoprolol succinate 50 mg 100 mg PO DAILY 05/23/21 10/26/21 History tablet,extended release 24 hr multivitamin with folic acid 400 1 tab PO DAILY 05/23/21 10/26/21 History mcg tablet omeprazole 40 mg capsule,delayed 40 mg PO DAILY 05/23/21 10/26/21 History release rivaroxaban 20 mg tablet (Xarelto) 20 mg PO DAILY 05/23/21 10/26/21 History tamsulosin 0.4 mg capsule 0.4 mg PO HS 05/23/21 10/26/21 History gabapentin 600 mg tablet 600 mg PO DAILY 10/01/21 10/26/21 History omega-3 fatty acids 1 cap PO BID 10/01/21 10/26/21 History budesonide-formoterol HFA 80 2 puff INHALATION BID #1 g 10/03/21 10/26/21 Rx mcg-4.5 mcg/actuation aerosol inhaler (Symbicort) cefpodoxime 200 mg tablet 400 mg PO Q12H #10 tab 10/03/21 10/26/21 Rx doxycycline hyclate 100 mg tablet 100 mg PO BID #5 tab 10/03/21 10/26/21 Rx prednisone 20 mg tablet 40 mg PO DAILY #6 tab 10/03/21 10/26/21 Rx Exam Eyes Other: Uncorrected visual acuity measures 20/30 right eye, 20/100 left eye. Intraocular pressure is 20 OD, 18 OS. Extraocular motility is normal. Slit- lamp examination reveals a well-positioned PCIOL in the right eye with some zonular laxity. In the left eye there is a moderate nuclear/cortical/posterior subcapsular cataract. Pupils dilated to 5 mm OU. The corneas, anterior chamber, and iris are normal. Disc cupping is 0.35 OU with normal vessels, macula, peripheral retina and vitreous. Resp Auscultation: clear to auscultation bilaterally Cardio Rate: regular rate Rhythm: regular rhythm
[2021-10-26 09:28] VITALS: BP 139/85; PULSE 80; RESP 18; TEMP 36.3; O2SAT 95
[2021-10-26] MEDS: Tropicam./Phenyleph. (1/2.5%) 5 ML BTL OS ×3 (09:36→09:48)
--- NOTE | 2021-10-26 10:14 | W.ANESPRE ---
General Info Date of Service Date Performed: 10/26/21 Height: 5 ft 8 in Weight: 79.4 kg Body Mass Index (BMI): 26.6 Surgical Procedure: Operation Date: 10/26/21 11:40 Proposed Procedure Side Surgeon p Cataract Extraction with IOL Implant Left Ruben Benitez MD Meds Allergies and Home Medications Allergies Allergy/AdvReac Type Severity Reaction Status Date / Time No Known Allergies Allergy Verified 10/26/21 09:24 Home Medication Medication Instructions Recorded acetaminophen 325 mg tablet 650 mg PO Q6H PRN 05/23/21 albuterol sulfate 90 mcg/actuation 2 puff INHALATION Q6H PRN 05/23/21 aerosol inhaler (ProAir HFA) ascorbic acid (vitamin C) 500 mg 1,000 mg PO DAILY 05/23/21 capsule aspirin 81 mg tablet 81 mg PO DAILY 05/23/21 atorvastatin 40 mg tablet 40 mg PO DAILY 05/23/21 calcium carbonate 200 mg calcium 2 tab PO DAILY 05/23/21 (500 mg)-vitamin D3 400 unit tablet digoxin 250 mcg (0.25 mg) tablet 250 mcg PO DAILY 05/23/21 ferrous sulfate 325 mg (65 mg 650 mg PO DAILY 05/23/21 iron) tablet finasteride 5 mg tablet 5 mg PO DAILY 05/23/21 furosemide 40 mg tablet (Lasix) 40 mg PO DAILY 05/23/21 metoprolol succinate 50 mg 100 mg PO DAILY 05/23/21 tablet,extended release 24 hr multivitamin with folic acid 400 1 tab PO DAILY 05/23/21 mcg tablet omeprazole 40 mg capsule,delayed 40 mg PO DAILY 05/23/21 release rivaroxaban 20 mg tablet (Xarelto) 20 mg PO DAILY 05/23/21 tamsulosin 0.4 mg capsule 0.4 mg PO HS 05/23/21 gabapentin 600 mg tablet 600 mg PO DAILY 10/01/21 omega-3 fatty acids 1 cap PO BID 10/01/21 budesonide-formoterol HFA 80 2 puff INHALATION BID #1 g 10/03/21 mcg-4.5 mcg/actuation aerosol inhaler (Symbicort) cefpodoxime 200 mg tablet 400 mg PO Q12H #10 tab 10/03/21 doxycycline hyclate 100 mg tablet 100 mg PO BID #5 tab 10/03/21 prednisone 20 mg tablet 40 mg PO DAILY #6 tab 10/03/21 Current Visit Medications: Current Medications Generic Name Dose Route Start Last Admin Trade Name Freq PRN Reason Stop Dose Admin Acetaminophen 1,000 mg 10/26/21 06:00 Acetaminophen 500 Mg Tab PO Q4H PRN PRN Miscellaneous Medication 0 ml 10/26/21 06:00 Prednisolone 1%, Moxifloxacin 0.5%, Nepafenac 0.1% 5ml Btl OS DIRECTED PREETHI Miscellaneous Medication 0 ml 10/26/21 06:00 10/26/21 09:48 Tropicam./Phenyleph. (1/2.5%) 5 Ml Btl OS 1 drp DIRECTED PREETHI Administration Tetracaine HCl 0 ml 10/26/21 06:00 Tetracaine 0.5% 4 Ml Btl OS DIRECTED PREETHI PFSH Active Problems Active Problems: Problem Status Onset Code Posterior subcapsular age-related cataract of left eye H25.042 Nuclear sclerotic cataract of left eye H25.12 Cortical cataract of left eye H26.9 Hypoxia R09.02 COPD exacerbation J44.1 HTN (hypertension) I10 Atherosclerosis of coronary artery without angina pectoris I25.10 Critical lower limb ischemia I70.229 Nuclear sclerotic cataract of right eye H25.11 Cortical cataract of right eye H26.9 Posterior subcapsular age-related cataract, right eye H25.041 Medical History Medical History Abnormal LFTs (liver function tests) Acute respiratory failure with hypoxia and hypercapnia Acute systolic CHF (congestive heart failure) Anemia CAD (coronary artery disease) Cardiomyopathy COPD (chronic obstructive pulmonary disease) Hiatal hernia with GERD without esophagitis History of alcoholism History of anemia HLD (hyperlipidemia) Hyperkalemia Hypo-osmolality and hyponatremia Intermittent claudication Lumbosacral radiculopathy NSTEMI (non-ST elevated myocardial infarction) Overweight PAD (peripheral artery disease) Pain in right knee Pulmonary hyperinflation Stenosis of artery of left lower extremity Surgical History Surgical History Hx of vascular surgery LLE. Tobacco Smoking/Tobacco Use Status: Current every day Tobacco Type: cigarettes Smoking packs per day: 0.75 Smoking cigarettes per day: 15.0 Years smoked: 45 Smoking pack-years: 33.75 Counseling given: provider counseling and support medications Alcohol Alcohol Intake: current Alcohol intake frequency: a few times a month Substance Use Substance use type: does not use Vital Signs and Lab Results Vital Signs Most Recent Vital Signs in EMR: Most Recent Vital Signs Temp Pulse Resp BP Pulse Ox 36.3 C L 80 18 139/85 95 10/26/21 09:28 10/26/21 09:28 10/26/21 09:28 10/26/21 09:28 10/26/21 09:28 Lab Results Blood Type / Crossmatch: No Data to Display Complete Blood Count: White Blood Count 8.89 10^3/uL (4.4-10.8) 10/02/21 06:35 10/02/21 Red Blood Count 4.19 10^6/uL (4.36-5.78) L 10/02/21 06:35 10/02/21 Hemoglobin 13.0 g/dL (13.5-17.5) L 10/02/21 06:35 10/02/21 Hematocrit 40.0 % (40.0-50.0) 10/02/21 06:35 10/02/21 Platelet Count 317 10^3/uL (130-400) 10/02/21 06:35 10/02/21 Complete Metabolic Panel: Sodium Level 129 mmol/L (136-145) L 10/03/21 06:20 10/03/21 Potassium Level 4.6 mmol/L (3.5-5.1) 10/03/21 06:20 10/03/21 Chloride Level 91 mmol/L (98-107) L 10/03/21 06:20 10/03/21 Carbon Dioxide Level 34.8 mmol/L (21.0-32.0) H 10/03/21 06:20 10/03/21 Blood Urea Nitrogen 17 mg/dL (7-18) 10/03/21 06:20 10/03/21 Creatinine 0.6 mg/dL (0.70-1.30) L 10/03/21 06:20 10/03/21 Estimated GFR/1.73 m2 >= 60.00 (mL/min/1.73m2) 10/03/21 06:20 10/03/21 Magnesium Level 2.0 mg/dL (1.8-2.4) 10/03/21 06:20 10/03/21 Calcium Level 9.2 mg/dL (8.5-10.1) 10/03/21 06:20 10/03/21 Albumin 3.6 g/dL (3.4-5.0) 10/01/21 11:15 10/01/21 Glucose Level 109 mg/dL (74-106) H 10/03/21 06:20 10/03/21 Liver Function Panel: Alanine Aminotransferase (ALT/SGPT) 20 U/L (16-63) 10/01/21 11:15 10/01/21 Aspartate Amino Transf (AST/SGOT) 15 U/L (15-37) 10/01/21 11:15 10/01/21 Coagulation Panel: D-Dimer 508 ng/mlFEU (<500) H 10/01/21 11:15 10/01/21 Cardiac Panel: Troponin I < 50 ng/L (<or=60) 10/01/21 NG-Zbz-I-Type Natriuretic Peptide 875 pg/mL (<300) H 10/01/21 Arterial Blood Gas: Arterial Blood Gas Sample Site Left Radial 10/01/21 12:32 10/01/21 Arterial Blood pH 7.44 (7.35-7.45) 10/01/21 12:10/01/21 Arterial Blood pO2 77 mmHg (80-105) L 10/01/21 12:32 10/01/21 Arterial Blood pCO2 62 mmHg (35-45) H* 10/01/21 12:32 10/01/21 Arterial Blood Oxygen Saturation 96 % (95-98) 10/01/21 12:32 10/01/21 Arterial Blood HCO3 42 mmol/L (22-26) H 10/01/21 12:32 10/01/21 Arterial Blood Base Excess > 15 mmol/L (-2-3) H 10/01/21 12:32 10/01/21 Arterial Blood Total CO2 38 mmol/L (23-27) H 10/01/21 12:32 10/01/21 Venous Blood Gas: Venous Blood pH 7.45 (7.31-7.41) H 10/01/21 11:35 10/01/21 Venous Blood Partial Pressure O2 20 mmHg 10/01/21 11:35 10/01/21 Venous Blood Partial Pressure CO2 64 mmHg (41-51) H* 10/01/21 11:35 10/01/21 Venous Blood Oxygen Saturation 38 % 10/01/21 11:35 10/01/21 Venous Blood HCO3 44 mmol/L (23-28) H 10/01/21 11:35 10/01/21 Venous Blood Base Excess > 15 mmol/L (-2-3) H 10/01/21 11:35 10/01/21 Venous Blood Total Carbon Dioxide 40 mmol/L (24-29) H 10/01/21 11:35 10/01/21 Pancreas Panel: No Data to Display Thyroid Panel: No Data to Display Infectious Disease: Coronavirus (COVID-19)(PCR) Negative (Negative) 10/24/21 09:20 10/24/21 Coronavirus 2019 Source Nasal/Nares 10/24/21 09:20 10/24/21 Blood Cultures: No Data to Display Toxicology Panel: Digoxin Level 1.15 ng/mL (0.90-2.00) 10/01/21 11:15 10/01/21 Imaging and Studies Imaging and Studies Study information below may be from another EMR and interpreted by another provider. Please see original notes in EMR for more complete details. EKG Summary: 06/14/21: Conclusion Sinus rhythm...normal P axis, V-rate 50- 99 Ventricular premature complex...V complex w/ short R-R interval Probable left atrial enlargement...P >50mS, <-0.10mV V1 Incomplete right bundle branch block...QRSd >112, terminal axis(90,270) Anterior myocardial infarction age-indeterminate Anesthesia Assessment and Plan Anesthesia History Personal History: No History of Anesthesia Complications Family History: No Family History of Anesthesia Complications Exercise Tolerance Exercise Tolerance: Metabolic Equivalents>4 Cardiac & Pulmonary Exam Cardiac Exam: Normal S1/S2 Heart Sounds Pulmonary Exam: Wheezing Present Implantable Cardiac Device Does patient have a Pacemaker or an ICD?: No Airway Exam Known Difficult Airway: No Mallampati Class: 2 Mouth Opening: Normal (> 3cm) Thyromental Distance: Greater than 3 cm Neck Range of Motion: Full ROM Neck Circumference: Normal Teeth Condition: Removable Dentures/Plates Upper ASA Classification ASA Score: ASA 3 Emergency Case?: No NPO Status NPO Status: NPO Clears >2 hours, Solids >8 hours Anesthesia Plan Resuscitation Status: Full Code Anesthesia Technique: MAC Anesthesia Airway Planned: Natural Airway Monitors Used: Standard Monitors
[2021-10-26 10:17] VITALS: BMI 26.6
[2021-10-26] MEDS: Balanced Salt Soln.-PLUS 500 ML BAG (10:59)
[2021-10-26] MEDS: Tetracaine 0.5% 4 ML BTL OS (10:59)
[2021-10-26] MEDS: Duovisc Viscoelastic System EACH 1 EACH (10:59)
[2021-10-26] MEDS: Lidocaine 2% Jelly 6 ML SYR (11:00)
[2021-10-26] MEDS: Povidone-Iodine Ophth 30 ML BTL (11:01)
--- NOTE | 2021-10-26 11:30 | W.PM.DSUDISC ---
Discharge Plan Disposition Patient Disposition: HOME Condition: Good Discharge Details Attending Provider: Ruben Benitez Primary Care Provider: Reji Andrews Home Meds and New Rx's Prescriptions: No Action furosemide [Lasix] 40 mg Tablet 40 mg PO DAILY 0RF atorvastatin 40 mg Tablet 40 mg PO DAILY 0RF acetaminophen 325 mg Tablet 650 mg PO Q6H PRN0RF metoprolol succinate 50 mg Tablet Extended Release 24 Hr 100 mg PO DAILY 0RF digoxin 250 mcg (0.25 mg) Tablet 250 mcg PO DAILY 0RF omeprazole 40 mg Capsule,Delayed Release(Dr/Ec) 40 mg PO DAILY 0RF tamsulosin 0.4 mg Capsule 0.4 mg PO HS 0RF ferrous sulfate 325 mg (65 mg iron) Tablet 650 mg PO DAILY 0RF aspirin 81 mg Tablet 81 mg PO DAILY 0RF albuterol sulfate [ProAir HFA] 90 mcg/actuation Hfa Aerosol Inhaler 2 puff INHALATION Q6H PRN0RF finasteride 5 mg Tablet 5 mg PO DAILY 0RF calcium carbonate-vitamin D3 200 mg (500 mg) -400 unit Tablet 2 tab PO DAILY 0RF Xarelto 20 mg Tablet 20 mg PO DAILY 0RF multivitamin with folic acid 400 mcg Tablet 1 tab PO DAILY 0RF ascorbic acid (vitamin C) 500 mg Capsule 1,000 mg PO DAILY 0RF omega-3 fatty acids Capsule 1 cap PO BID 0RF gabapentin 600 mg tablet 600 mg PO DAILY 0RF Label Comments: TAKE ONE TABLET BY MOUTH EVERY DAY prednisone 20 mg Tablet 40 mg PO DAILY Qty: 6 0RF cefpodoxime 200 mg Tablet 400 mg PO Q12H Qty: 10 0RF budesonide-formoterol [Symbicort] 80-4.5 mcg/actuation Hfa Aerosol Inhaler 2 puff inhalation BID Qty: 1 0RF doxycycline hyclate 100 mg tablet 100 mg PO BID Qty: 5 0RF Discharge Instructions Stand Alone Forms: Post-op Topical Cataract, Hermelinda England (DSU) Discharge Orders Discharge Orders: Discharge Order (Routine); Ordered 10/26/21 Ordered By: Ruben Benitez DS: Diagnosis Discharge Diagnosis (1) Cortical cataract of left eye: Status: Resolved (2) Nuclear sclerotic cataract of left eye: Status: Resolved (3) Posterior subcapsular age-related cataract of left eye: Status: Resolved
--- NOTE | 2021-10-26 11:31 | ROE_ITS ---
Date of service: 10/26/21 Time of Service: 11:31 Operative Note Operative Note DATE OF PROCEDURE: 10/26/21 PRE-OP DIAGNOSIS: Nuclear/cortical/posterior subcapsular cataract, left eye POST-OP DIAGNOSIS: same PROCEDURE: Cataract extraction using phacoemulsification with intraocular lens implant, left eye SURGEON: Ruben Benitez ANESTHESIA TYPE: Local By Surgeon and MAC Refer to Anesthesia Record PATHOLOGY: none sent COMPLICATIONS: None Patient was transported to: same day Patient's condition: stable Implants: [employer] / [employer] Tecnis [id number] Indications: Progressive decreased vision due to cataract, left eye Procedure Description: CATARACT SURGERY OPERATIVE REPORT PREOPERATIVE DIAGNOSIS: 1. Nuclear/cortical/posterior subcapsular cataract, left eye POSTOPERATIVE DIAGNOSIS: Same OPERATION: 1. Cataract extraction using phacoemulsification with posterior chamber intraocular lens implant, left eye. IOL: IOL Consultant Nurse/Model: How[employer] Howie / EMA Tecnis [id number] IOL Power: + 20.0 diopters IOL Serial Number: [id number] Optic Diameter: 6.0 mm Haptic/Overall Diameter: 13.0 mm PHACO INFO: Dima PCD Partnersurion Vision System with OZil and Active Fluidics Cumulative Dispersed Energy (CDE): 3.73seconds SURGEON: Ruben Benitez MD, MERA ANESTHESIA: Monitored A [facility] (MAC), with local sub-tenon's anesthetic infiltration COMPLICATIONS: None SPECIMENS: None INDICATIONS FOR PROCEDURE: The patient is a 61-year-old male with history of progressive decreased vision in both eyes secondary to development of significant bilateral nuclear/cortical/posterior subcapsular cataract. He is significantly symptomatic that he desires cataract surgery and attempt to improve and maximize his vision. He has already undergone cataract surgery in the right eye and is doing well postoperatively. He now presents for cataract surgery in the left eye. PROCEDURE: The correct surgical eye was identified and marked as the left eye and the pupil was dilated in the preoperative area using mydriatics and cycloplegics. The dilated pupil size was 6.5 mm. He elected to proceed with oral sedation. The patient was brought to the operating room where cardiopulmonary monitoring was instituted and surgical time-out was performed, confirming the correct operative eye and IOL power. Topical anesthesia was administered and ophthalmic povidone-iodine 5% was instilled into the conjunctival fornices. Lidocaine gel was applied to the cornea and the kelin-ocular area was prepped with Betadine 10% solution and draped in the usual sterile fashion for intraocular surgery, including an aperture drape. A Tegaderm transparent film dressing was cut in half and used to cover the lashes and lid margins. Care was taken to sequester the lashes and lid margins under the Tegaderm dressing. A lid speculum was placed between the lids of the operative eye and the Dima Lux[employer] Rev[employer] operating microscope was maneuvered into position. Angelito scissors were then used to make a conjunctival buttonhole approximately 6mm posterior to the limbus in the inferonasal quadrant. Blunt dissection was carried out to expose bare sclera, and a blunt-tipped sub-tenon?s anesthesia cannula was introduced and passed posteriorly along the globe where non- preserved plain lidocaine was injected into posterior sub-Tenon?s space. A sideport knife was used to make a paracentesis port superiorl y/superiortemporally. Intraocular phenylephrine/lidocaine was injected int the anterior chamber.. The anterior chamber was filled with viscoelastic. A 2.4mm keratome knife was used to create a half-thickness groove at the limbus and then to construct a three-plane near-clear corneal tunnel extending 2.0mm into clear cornea at the 3:00 position. A flap was raised on the anterior capsule and catrachitau lorhexis forceps were used to complete a continuous curvilinear capsulorhexis of 5.0 mm. Capsulorhexis was challenging due to constant patient movement from chronic back pain. Balanced salt solution was then used to perform cortical cleaving hydrodissection and nuclear hydrodelineation until the lens could be freely rotated within the capsular bag. The lens nucleus was then disassembled and rem rosa maria within the capsular bag and iris plane using phacoemulsification. Residual cortical material was removed using the 45-degree angled silicone I/A tip with 0.3mm port. The posterior capsule was carefully polished to remove as much residual lens epithelial cells as safely possible. The capsular bag was then inflated and the anterior chamber deepened with viscoelastic. The lens implant described above was inserted into the capsular bag using the EMA [place] Injector. A Kuglen hook was used to dial the IOL into position. Residual viscoelastic was then removed first from posterior to the IOL, then from the anterior chamber using the I/A handpiece. The lens implant was noted to center nicely within the capsular bag. The incisions were stromally hydrated, and the anterior chamber was reformed using BSS. Then 0.5cc of moxifloxacin 1.0mg/ml were injected into the capsular bag and anterior chamber. The incisions were checked with a Weck spear and found to be secure. Several drops of ophthalmic povidone-iodine 5% were then applied to the eye followed by two drops of Imprimis combination prednisolone/moxifloxacin/nepafenac solution. The drapes were removed and a clear plastic protective eye shield was placed over the eye. The patient was then returned to Same Day Surgery in stable condition.
[2021-10-26 11:38] VITALS: BP 140/85; PULSE 75; RESP 18; TEMP 36.7; O2SAT 98
--- NOTE | 2021-10-26 11:40 | W.ANESPOSTOP ---
Postoperative Evaluation Date, Time and Location Date Performed: 10/26/21 Time Performed: 11:35 Patient Location: Day Surgery Unit Vital Signs Most Recent Imported Vital Signs: Most Recent Vital Signs Temp Pulse Resp BP Pulse Ox 36.7 C 75 18 140/85 98 10/26/21 11:38 10/26/21 11:38 10/26/21 11:38 10/26/21 11:38 10/26/21 11:38 Pain Score Most Recent Pain Score: Most Recent Pain Score Pain Level 0 10/26/21 11:38 Assessment Mental Status: Awake (Alert & Oriented to Patient Baseline) Airway and Respiratory Function: Patent airway with normal (patient baseline) respiratory exam Cardiovascular Function: Hemodynamically Stable Hydration Status: Adequately Hydrated Nausea & Vomiting: No Nausea or Vomiting Pain: Pt. Denies Any Pain Peripheral Nerve Block: Patient did not receive a nerve block
== END 2021-10-26 08:58 | disposition home or self-care (01) ==
PROVIDERS: PCP Internal Medicine; Visit Provider Ophthalmology
PROC: (CPT 66984; principal; 2021-10-26 11:30)
DX: H25.042 Posterior subcapsular polar age-related cataract, left eye (principal); I25.10 Atherosclerotic heart disease of native coronary artery without angina pectoris; I10 Essential (primary) hypertension; J44.9 Chronic obstructive pulmonary disease, unspecified
CPT/HCPCS: 66984; V2632